=== PATIENT | female | born 1970 | race Caucasian/White ===

== ENCOUNTER 2024-07-17 13:16 | Inpatient (IN) ==
[2024-07-17 13:45] LABS: Hematocrit (blood only) 47.1 % (37.0-47.0); Hemoglobin 15.9 g/dl (12.0-16.0); Mean Corpuscular Hemoglobin 25.6 pg (25.0-34.0); Mean Corpuscular Hgb Conc 33.8 g/dL (32.0-36.0); Mean Corpuscular Volume 75.8 fL (80.0-100.0); Mean Platelet Volume 10.7 fL (9.4-12.4); Platelet Count 297 K/uL (130-400); RDW Coefficient of Variation 16.7 % (11.5-14.5); RDW Standard Deviation 43.5 fL (36.4-46.3); Red Blood Count 6.21 M/uL (4.20-5.40); White Blood Count 15.23 K/ul (4.8-10.8)
[2024-07-17 13:53] LABS: iSTAT Creatinine 1.1 mg/dl (0.6-1.3); iSTAT Hemoglobin 16.7 g/dl (12.0-16.0); iSTAT Ionized Calcium 1.19 mmol/l (1.12-1.32); iSTAT Potassium 3.4 mmol/L (3.3-5.0)
[2024-07-17 14:11] LABS: Albumin Globulin Ratio 1.5 (0.9-2); Albumin Level 4.7 gm/dl (3.4-5.0); Bilirubin,Total 1.3 mg/dl (0.2-1.0); Creatinine Clr Calc Pharmacy 59.1 ml/min; Globulin 3.2 gm/dl (2.5-4.0); Magnesium 1.7 mg/dl (1.7-2.4); Potassium 3.5 mmol/L (3.5-5.1); Total Protein 7.9 gm/dl (6.0-8.3)
[2024-07-17 14:13] LABS: Partial Thromboplastin Time 27 Seconds (21-31); Prothrombin Time 10.9 Seconds (9.0-12.0)
[2024-07-17] MEDS: SODIUM CHLORIDE 0.9% 1,000 ML IV ONE (14:21)
[2024-07-17] MEDS: ACETAMINOPHEN 1,000 MG/100 ML VIAL IV STA (14:21)
[2024-07-17] MEDS: OPTIRAY 320 125ml IV ONE (14:29)
--- NOTE | 2024-07-17 14:47 | Emergency Department Note ---
Impression & Plan TIA (transient ischemic attack), Acute ischemic left MCA stroke, Expressive aphasia ED Provider Note NAME: PAOLA BOX AGE: 54 SEX: F : 1970 ARRIVES VIA: Walk-In INFORMANT: Patient ED PROVIDER(S): Ian Webber MD CHIEF COMPLAINT: Aphasia, headache, fevers, dizziness, nausea, vomiting. PLAN: Disposition: Admit. MEDICAL DECISION MAKING: The patient is a pleasant 53-year-old woman with a past medical history of hypertension, anxiety, diabetes who presents to the emergency department via walk-in accompanied by her mother for evaluation of confusion with trouble speaking in the setting of having symptoms of headache, dizziness, fevers with nausea and vomiting that began a week ago. Patient mother reports she last spoke to the patient 2 days ago and so the patient's last known well is greater than 48 hours prior and so stroke alert was not activated on presentation. Of note, the patient did arrive to emergency department during time of high volume, acuity and prolonged emergency department waiting times. Critical pathways initiated from triage. On my evaluation the patient is no acute distress, afebrile with blood pressure 150/110s and vital signs otherwise stable. She appears clinically dry. Her speech is fluent at this time. She exhibits mild confusion to place where she knows she is in a hospital setting but is not accurate on the name of the facility. She has normal strength in all extremities. Face is symmetric. Given the mother's report of aphasia prior to arrival stroke evaluation was expedited. EKG without overt acute ischemia. CXR negative for acute cardiopulmonary process per my personal preliminary review/interpretation. WBC 15.2 K, nonspecific. H/H 15.9/47.1 consistent with patient's clinically dry appearance. Platelets within normal limits. Chemistry with bicarbonate of 19 consistent with the patient's dehydration with anion gap mildly above normal at 13. Glucose is 198. Total Bilirubin 1.3, nonspecific with LFTs otherwise normal. Respiratory BioFire was negative. CT of the head and CT of the head neck were performed. Left MCA occlusion near its origin is described with diminished vasculature in the MCA territory. There does appear to be some distal reconstitution. CT of the neck without significant carotid disease with mild atherosclerotic plaque of carotid bulbs with less than 50% stenosis described. 60% stenosis of the V4 segment of the right vertebral artery described. Given CT without contrast does not show evidence of ischemia stroke alert was activated in the event the patient may be considered for perfusion studies. Case was discussed with Dr. Box, [facility] tel[place]roke neurology. Appreciate consultation and assessment via telestroke terminal and recommendations. Patient's symptoms are completely resolved at this time and so symptoms are consistent with TIA. No indication for transfer for perfusion studies or thrombectomy at this time. Recommends that the patient be admitted to our facility for further stroke assessment including MRI of the brain. Recommends low-dose aspirin and 300 mg load of Plavix. If patient were to have recurrence of symptoms then stroke alert should be activated again in the event she would be a candidate for reperfusion and even TNK may be considered. Case was discussed with Blanka Tovar PAC with Dr. Ramirez [facility] hospitalist, who will evaluate the patient for admission. Further management per admitting team. Triage Nursing notes reviewed and agree them. Prior/external medical records reviewed Vital Signs: reviewed Differential diagnosis: Infection, dehydration, metabolic abnormality, hypo/hyperglycemia, electrolyte disturbance, anemia, hypoxia, cardiac sources, intracerebral event, toxicologic, neurologic, as well as other pathologies. ER treatment provided: See below. Diagnostics interpreted by me: ECG: Normal sinus rhythm, 72 bpm, no ectopy, no overt ST elevation or depression, QTc 468, QRS 84. Cardiac Monitoring: An order for continuous cardiac monitoring was placed and demonstrated normal sinus rhythm, 72 bpm, no ectopy. Laboratory studies: See below Imaging studies: See below Consultation(s): Dr. Box, [facility] telestroke Case was discussed with Blanka Tovar PAC with Dr. Ramirez [facility] hospitalist, who will evaluate the patient for admission. HPI: The patient is a pleasant 53-year-old woman with a past medical history of hypertension, anxiety, diabetes who presents to the emergency department via walk-in accompanied by her mother for evaluation of confusion with trouble speaking in the setting of having symptoms of headache, dizziness, fevers with nausea and vomiting that began a week ago. Patient mother reports she last spoke to the patient 2 days ago and so the patient's last known well is greater than 48 hours prior and so stroke alert was not activated on presentation. ROS: See above HPI for pertinent positives & negatives. A total of 10 systems reviewed and were otherwise negative. VITALS:See Below PHYSICAL EXAMINATION: GENERAL: Awake, alert, well-appearing, in no distress HENT: Normocephalic, atraumatic. Oropharynx with dry mucous membranes and otherwise unremarkable. EYES: Normal conjunctiva. Sclera non-icteric. EOMI. No nystamgus. PEARRL. NECK: Supple. No nuchal rigidity. FROM. No JVD. RESPIRATORY: Clear to auscultation. CARDIAC: Regular rate, normal rhythm. Extremities warm and well perfused. Pulses equal. ABDOMEN: Soft, non-distended. No tenderness to palpation. No rebound or guarding. No masses. MUSCULOSKELETAL: Chest examination reveals no tenderness. The back is symmetrical on inspection without obvious abnormality. There is no CVA tenderness to palpation. No joint edema. LOWER EXTREMITIES: Calves are equal size bilaterally and non-tender. No edema. No discoloration. NEURO: No sensory or motor deficits noted. Cranial nerves II-XII grossly intact. Speech is fluent. 5/5 strength and SILT x 4 extremities. Cerebellar function intact including [id number], alternating palms, [id number]. SKIN: No rash or jaundice noted. Ian Webber MD Past Med/Surg History Problem List Stroke-like symptoms Expressive aphasia (Acute) Acute ischemic left MCA stroke (Acute) TIA (transient ischemic attack) (Acute) Medical History Diabetes Hypertension Surgical History History of carpal tunnel surgery Hx laparoscopic cholecystectomy Hx of section Social History Smoking Status: Never smoker Second Hand Exposure: No; Do You Dip or Chew Tobacco: No; Tobacco Cessation Education Requested by Patient: No Hx Alcohol Use: No Hx Substance Use: Yes Last Used Substance: Days (ago) Substance Use Type Other:: MEDICAL MARIJUANA Preferred Language: Mauritian Communication Ability: Effective Hand Worker Required: No Beliefs That Will Affect Care: None Current Living Situation: Parent Other Information That Helps Us Care for You: No Feels Safe at Home: Yes Safety Concerns: Feels Safe At This Time Assistive Devices: Glasses Allergies Allergies Allergy/AdvReac Type Severity Reaction Status Date / Time bupropion [From Wellbutrin] Allergy Hives Verified 07/17/24 15:55 Home Meds Home Medications Medication Instructions Recorded Confirmed cyclobenzaprine 10 mg tablet 10 mg PO HS 07/17/24 07/17/24 dulaglutide 0.75 mg/0.5 mL 0.75 mg subcut WK 07/17/24 07/17/24 subcutaneous pen injector (Trulicity) lisinopril 10 mg tablet 10 mg PO HS 07/17/24 07/17/24 sertraline 100 mg tablet 200 mg PO QAM 07/17/24 07/17/24 Results & Data (ED) Vital Signs Vital Signs - 24 hr 07/17/24 13:21 07/17/24 14:06 07/17/24 14:14 Temperature 36.9 C Temperature Source Oral Pulse Rate 79 72 Pulse Rate [Apical] 69 Pulse Rhythm Pulse Rhythm [Apical] Regular Pulse Strength [Apical] Normal Respiratory Rate 20 20 Respiratory Effort / Characteristics Non-Labored Spontaneous Non-Labored Spontaneous Respiratory Depth Normal Normal Respiratory Pattern Regular Regular Blood Pressure 158/110 H Blood Pressure [Right Arm] 166/95 H Blood Pressure Mean 126 Blood Pressure Mean [Right Arm] 118 Blood Pressure Position [Right Arm] Semi-fowlers Pulse Oximetry 97 98 Oxygen Delivery Method Room Air Room Air Sepsis Recent Fever Within 48 Hours No Sepsis New/Unexplained Change in Mental Status No Sepsis Action Taken by Nursing No Action Required 07/17/24 14:14 07/17/24 14:14 07/17/24 15:27 Temperature 36.7 C Temperature Source Oral Pulse Rate 70 Pulse Rate [Apical] 69 Pulse Rhythm Regular Pulse Rhythm [Apical] Pulse Strength [Apical] Respiratory Rate 20 18 Respiratory Effort / Characteristics Non-Labored Spontaneous Respiratory Depth Normal Respiratory Pattern Blood Pressure Blood Pressure [Right Arm] 168/118 H Blood Pressure Mean Blood Pressure Mean [Right Arm] 134 Blood Pressure Position [Right Arm] Pulse Oximetry 98 98 98 Oxygen Delivery Method Room Air Room Air Room Air Sepsis Recent Fever Within 48 Hours Sepsis New/Unexplained Change in Mental Status Sepsis Action Taken by Nursing Laboratory Data Attestation: I reviewed the patient's lab results. 07/17/24 13:33 07/17/24 13:33 Lab Results 07/17/24 07/17/24 07/17/24 Range/Units 13:25 13:33 13:41 WBC 15.23 H (4.8-10.8) K/ul RBC 6.21 H (4.20-5.40) M/uL Hgb 15.9 (12.0-16.0) g/dl POC Hgb 16.7 H (12.0-16.0) g/dl Hct 47.1 H (37.0-47.0) % POC Hct 49 H (37-47) % MCV 75.8 L (80.0-100.0) fL MCH 25.6 (25.0-34.0) pg MCHC 33.8 (32.0-36.0) g/dL RDW Std Deviation 43.5 (36.4-46.3) fL RDW Coeff of Cielo 16.7 H (11.5-14.5) % Plt Count 297 (130-400) K/uL MPV 10.7 (9.4-12.4) fL PT 10.9 (9.0-12.0) Seconds INR 1.0 (0.9-1.1) APTT 27 (21-31) Seconds PTT Ratio 1.0 POC Sodium 137 (135-144) mmol/L Sodium 134 L (136-145) mmol/L POC Potassium 3.4 (3.3-5.0) mmol/L Potassium 3.5 (3.5-5.1) mmol/L POC Chloride 103 (101-112) mmol/L Chloride 102 (98-107) mmol/L Carbon Dioxide 19 L (21-32) mmol/L POC Total CO2 18 L (24-31) mmol/L Anion Gap 13 H (3-11) POC Anion Gap 21.0 (16-25) mmol/L POC BUN 16 (7-18) mg/dl BUN 16 (6-23) mg/dl Creatinine 1.07 (0.6-1.2) mg/dl POC Creatinine 1.1 (0.6-1.3) mg/dl Est Cr Clr Drug Dosing 59.1 ml/min eGFR 62.11 BUN/Creatinine Ratio 15.0 (10-20) Glucose 198 H (70-99(Fasting)) mg/dl POC Glucose 222 H (70-99) mg/dl POC Glucose (other) 195 H (70-99) mg/dl Calcium 10.0 (8.6-10.3) mg/dl POC Ioniz Calcium Kelsey 1.19 (1.12-1.32) mmol/l Magnesium 1.7 (1.7-2.4) mg/dl Total Bilirubin 1.3 H (0.2-1.0) mg/dl AST 26 (13-39) U/L ALT 14 (7-52) U/L Alkaline Phosphatase 54 (34-104) U/L Total Protein 7.9 (6.0-8.3) gm/dl Albumin 4.7 (3.4-5.0) gm/dl Globulin 3.2 (2.5-4.0) gm/dl Albumin/Globulin Ratio 1.5 (0.9-2) Adenovirus (PCR) (NotDetected) B. pertussis DNA (PCR) (NotDetected) B.parapertussis DNA PCR (NotDetected) C. pneumoniae DNA (PCR) (NotDetected) Coronavirus OC43 (PCR) (NotDetected) Coronavirus HKU1 (PCR) (NotDetected) Coronavirus 229E (PCR) (NotDetected) SARS-CoV-2 (PCR) (NotDetected) Coronavirus NL63 (PCR) (NotDetected) Human Metapneumovir PCR (NotDetected) Influenza Type A (PCR) (NotDetected) Influenza Type B (PCR) (NotDetected) M. pneumoniae (PCR) (NotDetected) Parainfluenza 1 (PCR) (NotDetected) Parainfluenza 2 (PCR) (NotDetected) Parainfluenza 3 (PCR) (NotDetected) Parainfluenza 4 (PCR) (NotDetected) RSV (PCR) (NotDetected) Entero/Rhino (PCR) (NotDetected) 07/17/24 Range/Units 14:21 WBC (4.8-10.8) K/ul RBC (4.20-5.40) M/uL Hgb (12.0-16.0) g/dl POC Hgb (12.0-16.0) g/dl Hct (37.0-47.0) % POC Hct (37-47) % MCV (80.0-100.0) fL MCH (25.0-34.0) pg MCHC (32.0-36.0) g/dL RDW Std Deviation (36.4-46.3) fL RDW Coeff of Cielo (11.5-14.5) % Plt Count (130-400) K/uL MPV (9.4-12.4) fL PT (9.0-12.0) Seconds INR (0.9-1.1) APTT (21-31) Seconds PTT Ratio POC Sodium (135-144) mmol/L Sodium (136-145) mmol/L POC Potassium (3.3-5.0) mmol/L Potassium (3.5-5.1) mmol/L POC Chloride (101-112) mmol/L Chloride (98-107) mmol/L Carbon Dioxide (21-32) mmol/L POC Total CO2 (24-31) mmol/L Anion Gap (3-11) POC Anion Gap (16-25) mmol/L POC BUN (7-18) mg/dl BUN (6-23) mg/dl Creatinine (0.6-1.2) mg/dl POC Creatinine (0.6-1.3) mg/dl Est Cr Clr Drug Dosing ml/min eGFR BUN/Creatinine Ratio (10-20) Glucose (70-99(Fasting)) mg/dl POC Glucose (70-99) mg/dl POC Glucose (other) (70-99) mg/dl Calcium (8.6-10.3) mg/dl POC Ioniz Calcium Kelsey (1.12-1.32) mmol/l Magnesium (1.7-2.4) mg/dl Total Bilirubin (0.2-1.0) mg/dl AST (13-39) U/L ALT (7-52) U/L Alkaline Phosphatase (34-104) U/L Total Protein (6.0-8.3) gm/dl Albumin (3.4-5.0) gm/dl Globulin (2.5-4.0) gm/dl Albumin/Globulin Ratio (0.9-2) Adenovirus (PCR) Not Detected (NotDetected) B. pertussis DNA (PCR) Not Detected (NotDetected) B.parapertussis DNA PCR Not Detected (NotDetected) C. pneumoniae DNA (PCR) Not Detected (NotDetected) Coronavirus OC43 (PCR) Not Detected (NotDetected) Coronavirus HKU1 (PCR) Not Detected (NotDetected) Coronavirus 229E (PCR) Not Detected (NotDetected) SARS-CoV-2 (PCR) Not Detected (NotDetected) Coronavirus NL63 (PCR) Not Detected (NotDetected) Human Metapneumovir PCR Not Detected (NotDetected) Influenza Type A (PCR) Not Detected (NotDetected) Influenza Type B (PCR) Not Detected (NotDetected) M. pneumoniae (PCR) Not Detected (NotDetected) Parainfluenza 1 (PCR) Not Detected (NotDetected) Parainfluenza 2 (PCR) Not Detected (NotDetected) Parainfluenza 3 (PCR) Not Detected (NotDetected) Parainfluenza 4 (PCR) Not Detected (NotDetected) RSV (PCR) Not Detected (NotDetected) Entero/Rhino (PCR) Not Detected (NotDetected) Administered Medications Sodium Chloride (Nss) 1,000 mls @ 80 mls/hr IV .[id number] ILYA Stop: 07/18/24 06:42 Last Admin: 07/17/24 18:27 Dose: 80 mls/hr Documented By: ALEXA Discontinued Medications Aspirin (Aspirin 81 Mg Ectab) 81 mg PO NOW STA Stop: 07/17/24 16:31 Last Admin: 07/17/24 16:35 Dose: 81 mg Documented By: ROMINA Clopidogrel Bisulfate (Clopidogrel Bisulfate 300 Mg Tab) 300 mg PO NOW STA Stop: 07/17/24 16:31 Last Admin: 07/17/24 16:35 Dose: 300 mg Documented By: ROMINA Sodium Chloride (Nss) 1,000 mls @ 999 mls/hr IV .[id number] ONE Stop: 07/17/24 15:10 Last Infusion: 07/17/24 16:18 Dose: Infused Documented By: Admin: 07/17/24 14:21 Dose: 999 mls/hr Documented By: LAURE Acetaminophen (Ofirmev) 1,000 mg in 100 mls @ 400 mls/hr IV NOW STA Stop: 07/17/24 14:24 Last Infusion: 07/17/24 15:31 Dose: Infused Documented By: Admin: 07/17/24 14:21 Dose: 400 mls/hr Documented By: LAURE Ioversol (Optiray 320 125ml) 118 ml IV ONCE ONE Stop: 07/17/24 14:29 Last Admin: 07/17/24 14:29 Dose: 118 ml Documented By: REGINA Imaging Data Radiologist's Impression: Chest X-Ray 07/17/24 13:26 XR chest 1V portable HISTORY: 54 years-old Female stroke alert acute stroke like symptoms COMPARISON: None TECHNIQUE: AP view of the chest FINDINGS: Cardiomediastinal and hilar silhouettes are within normal limits. No pneumothorax, pleural effusion or airspace consolidation. The bones of the chest appear grossly intact. IMPRESSION: No acute process. ACT 112: Negative or not required by law. The above report was generated using voice recognition software. It may contain grammatical, syntax or spelling errors. Electronically signed by: Ariel Yadav M.D. 07/17/2024 3:05 PM Head CTA 07/17/24 13:43 CT angio head wo/w CLINICAL HISTORY: spech changes TECHNIQUE: Contiguous axial CT images of the head were acquired from the base of the skull to the vertex without intravenous contrast administration. CT angiography of the head was performed following intravenous administration of iodinated contrast. Coronal and sagittal MIPS were obtained from the axial data set and were submitted for review. Automated dose lowering techniques and/or adjustment according to patient size were utilized for this examination. All measurements were calculated based on NASCET criteria. Comparison: None available at the time of this dictation. FINDINGS: CT head: There is no acute intracranial hemorrhage or evidence of acute territorial infarction. No shift of the midline structures, mass effect, or extra-axial abnormalities are shown. CTA Head: The anterior and posterior cerebral circulations are patent. There is occlusion of the left MCA near its origin with diminished vasculature and the MCA territory. IMPRESSION: Findings are concerning for a left MCA occlusion. No evidence of hemorrhagic conversion. No definite CT findings of infarct are seen at this time, however. ACT 112: Negative or not required by law. Electronically signed by: Daniel Heath M.D. 07/17/2024 3:02 PM Neck CTA 07/17/24 13:45 CT angio neck with con CLINICAL HISTORY: 54 years-old Female with speech changes. Acute stroke like symptoms COMPARISON STUDY: CTA head of same day TECHNIQUE: Following the IV administration of 1 18 mL of Optiray, CT angiogram of the neck was performed from the aortic arch to the skull base. Images are reviewed in the axial, sagittal, and coronal planes. 3-D MIPS images are created and assessed. IV contrast was administered without complication. All measurements were calculated based on NASCET criteria. A dose lowering technique was utilized adhering to the principles of ALARA. CT DOSE: 998.74 mGy.cm FINDINGS: Three-vessel morphology of the thoracic aortic arch. Patency of the innominate and imaged clavian arteries. Atheromatous plaque of the common carotid arteries without high-grade stenosis. Mild atherosclerotic plaque of the carotid bulbs without high-grade stenosis. The imaged internal carotid arteries are patent. Dominant and patent vertebral arteries. There is irregular luminal narrowing involving the C4 segment right vertebral artery, likely secondary to atheromatous plaque resulting in approximately 60% stenosis. Multinodular thyroid goiter. The lung apices appear clear without pneumothorax. Numerous dental caries with periapical cysts. Degenerative changes of the cervical spine. IMPRESSION: 1. 60% stenosis of the V4 segment right vertebral artery. 2. Mild atherosclerotic plaque of the carotid bulbs with less than 50% stenosis. 3. No high-grade stenosis, arterial occlusion, aneurysm or dissection identified. ACT 112: Negative or not required by law. The above report was generated using voice recognition software. It may contain grammatical, syntax or spelling errors. Electronically signed by: Ariel Yadav M.D. 07/17/2024 2:58 PM Discharge Plan Visit Data Chief Complaint: TIA Symptoms Stated Complaint: TROUBLE FINDING WORDS, HEAD HURTS ED Provider: Ian Webber Discharge Problem: TIA (transient ischemic attack), Acute ischemic left MCA stroke, Expressive aphasia Patient Disposition: Admitted As Inpatient Discharge Instructions Interventions: ED Discharge Assessment Last Done: 07/17/24 17:38
--- NOTE | 2024-07-17 15:00 | CT Scan Report ---
CT angio neck with con CLINICAL HISTORY: 54 years-old Female with speech changes. Acute stroke like symptoms COMPARISON STUDY: CTA head of same day TECHNIQUE: Following the IV administration of 1 18 mL of Optiray, CT angiogram of the neck was perfor med from the aortic arch to the skull base. Images are reviewed in the axial, sagittal, and coronal p lanes. 3-D MIPS images are created and assessed. IV contrast was administered without complication. A ll measurements were calculated based on NASCET criteria. A dose lowering technique was utilized adh ering to the principles of ALARA. CT DOSE: 998.74 mGy.cm FINDINGS: Three-vessel morphology of the thoracic aortic arch. Patency of the innominate and imaged c lavian arteries. Atheromatous plaque of the common carotid arteries without high-grade stenosis. Mild atherosclerotic plaque of the carotid bulbs without high-grade stenosis. The imaged internal carotid arteries are patent. Dominant and patent vertebral arteries. There is irregular luminal narrowing involving the C4 segment right vertebral artery, likely secondary to atheromatous plaque resulting in approximately 60% steno sis. Multinodular thyroid goiter. The lung apices appear clear without pneumothorax. Numerous dental efra s with periapical cysts. Degenerative changes of the cervical spine. IMPRESSION: 1. 60% stenosis of the V4 segment right vertebral artery. 2. Mild atherosclerotic plaque of the carotid bulbs with less than 50% stenosis. 3. No high-grade stenosis, arterial occlusion, aneurysm or dissection identified. ACT 112: Negative or not required by law. The above report was generated using voice recognition software. It may contain grammatical, syntax o r spelling errors. Electronically signed by: Ariel Yadav M.D. 07/17/2024 2:58 PM
--- NOTE | 2024-07-17 15:05 | CT Scan Report ---
CT angio head wo/w CLINICAL HISTORY: spech changes TECHNIQUE: Contiguous axial CT images of the head were acquired from the base of the skull to the jude nirmala without intravenous contrast administration. CT angiography of the head was performed following intravenous administration of iodinated contrast. Coronal and sagittal MIPS were obtained from the ax ial data set and were submitted for review. Automated dose lowering techniques and/or adjustment acc ording to patient size were utilized for this examination. All measurements were calculated based on NASCET criteria. Comparison: None available at the time of this dictation. FINDINGS: CT head: There is no acute intracranial hemorrhage or evidence of acute territorial infarction. No sh ift of the midline structures, mass effect, or extra-axial abnormalities are shown. CTA Head: The anterior and posterior cerebral circulations are patent. There is occlusion of the lef t MCA near its origin with diminished vasculature and the MCA territory. IMPRESSION: Findings are concerning for a left MCA occlusion. No evidence of hemorrhagic conversion. No definite CT findings of infarct are seen at this time, however. ACT 112: Negative or not required by law. Electronically signed by: Daniel Heath M.D. 07/17/2024 3:02 PM
--- NOTE | 2024-07-17 15:07 | XRay Report ---
XR chest 1V portable HISTORY: 54 years-old Female stroke alert acute stroke like symptoms COMPARISON: None TECHNIQUE: AP view of the chest FINDINGS: Cardiomediastinal and hilar silhouettes are within normal limits. No pneumothorax, pleural effusion o r airspace consolidation. The bones of the chest appear grossly intact. IMPRESSION: No acute process. ACT 112: Negative or not required by law. The above report was generated using voice recognition software. It may contain grammatical, syntax o r spelling errors. Electronically signed by: Ariel Yadav M.D. 07/17/2024 3:05 PM
[2024-07-17 15:37] LABS: Adenovirus PCR Not Detected (NotDetected); Bordetella parapertussis PCR Not Detected (NotDetected); Bordetella pertussis PCR Not Detected (NotDetected); Chlamydia pneumoniae PCR Not Detected (NotDetected); Coronavirus 229E PCR Not Detected (NotDetected); Coronavirus CoV-2 (COVID19)PCR Not Detected (NotDetected); Coronavirus HKU1 PCR Not Detected (NotDetected); Coronavirus NL63 PCR Not Detected (NotDetected); Coronavirus OC43PCR Not Detected (NotDetected); Human Metapneumovirus PCR Not Detected (NotDetected); Influenza A PCR Not Detected (NotDetected); Influenza B PCR Not Detected (NotDetected); Mycoplasma pneumoniae PCR Not Detected (NotDetected); Parainfluenza Virus 1 PCR Not Detected (NotDetected); Parainfluenza Virus 2 PCR Not Detected (NotDetected); Parainfluenza Virus 3 PCR Not Detected (NotDetected); Parainfluenza Virus 4 PCR Not Detected (NotDetected); Respiratory Syncytial VirusPCR Not Detected (NotDetected); Rhinovirus/Enterovirus PCR Not Detected (NotDetected)
[2024-07-17] MEDS: CLOPIDOGREL BISULFATE 300 MG TAB PO STA (16:35)
[2024-07-17] MEDS: ASPIRIN 81 MG ECTAB PO STA (16:35)
--- NOTE | 2024-07-17 16:43 | History & Physical Report ---
Date of Service July 17, 2024 Assessment & Plan (1) Expressive aphasia: (2) Stroke-like symptoms: (3) Hypertension: (4) Diabetes: Plan This is a 54-year-old female with significant past medical history of T2DM, HTN, HLD, depression and chronic insomnia who presents to ED secondary to difficulty speaking. Sx occurred > 24hrs ago. Expressive Aphasia Stroke like sx L MCA Occlusion admit to PCU monitor on tele pt seen by Tele stroke and given improvement of sx it was recommended pt remain here for further stroke work up obtain MRI brain, echo consult neuro Start ASA 81mg daily, Plavix 75mg daily and lipitor 40mg daily PT/OT/ST if sx recur it is recommended to call stroke alert to determine if pt would require any additional intervention. Addendum 20:48 MRI:. Abnormal truncation of the proximal left M1 flow void is seen on reference CTA exam with numerous small collateral vessels. Appearance suggest chronic occlusion of the left MCA.2. Cortical gyriform diffusion restriction within the left parietal lobe spanning a distance of 2.7 cm, suggesting acute/subacute cerebral ischemia within the left MCA territory.3. Diffusion restriction within the right cerebellar hemisphere measuring 1.5 cm in diameter consistent with acute/ subacute right cerebellar infarct. Acute R cerebellar hemisphere and L parietal Lobe Infarct reached out to Tele Stroke Dr. Box : continue ASA, Plavix, Lipitor and add Zetia Pt with 60% R vertebral stenosis - medical management is recommended T2DM - obtain a1c in a.m., hold trulicity, ISS per protocol HTN - chronic, stable, hold lisinopril for now for permissive htn Depression: chronic, stable, continue zoloft DVT ppx: SCDS For now, await MRI FULL CODE PCP: Gabriel Dispo: admit to PCU for stroke work up Pt was seen and examined in collaboration with Dr. Ramirez, please see addendum I spent a total of 76 minutes reviewing notes, outpatient records, labs, medication, coordinating, documenting and providing care for this patient excluding time spent in the performance of separately billed services. History of Present Illness Chief Complaint: Difficulty speaking. Primary Care Provider: J Carlos Rios MD This is a 54-year-old female with significant past medical history of T2DM, HTN, HLD, depression and chronic insomnia who presents to ED secondary to difficulty speaking. Pts mom is at bedside who also helps elicit history. Patient reports difficulty speaking approx 24hrs ago. 48hrs ago she also reports vomiting. She also reports a headache for the last 24hrs. She texted her mom yesterday that she felt so sick and she was vomiting and she needed to lay down. Her mom was unable to get a hold of her last night and so this morning she went over to her house to see what was going on. When she got to the house she seemed confused and had difficulty speaking. Pt also complains of feeling sick and not well. Pts mom feels she is better than she was this morning. Pt reports feeling feverish two days ago, but did not confirm that she had a true fever. She denies cough, chest pain, sob, nausea, diarrhea, constipation, dysuria, increased urg/freq with urination or hematuria. She denies any known sick contacts. In ED pt was hypertensive initially. Her lab work revealed a leukocytosis and hyperglycemia. Her respiratory biofire was negative. She underwent head cta which was concerning for possible L MCA occlusion. She became a stroke alert and it was recommended to start ASA and plavix load. They did not feel she would require intervention given sx improving. Allergies Allergy/AdvReac Type Severity Reaction Status Date / Time bupropion [From Wellbutrin] Allergy Hives Verified 07/17/24 15:55 Home Medications Medication Instructions Recorded Confirmed Type cyclobenzaprine 10 mg tablet 10 mg PO HS 07/17/24 07/17/24 History dulaglutide 0.75 mg/0.5 mL 0.75 mg subcut WK 07/17/24 07/17/24 History subcutaneous pen injector (Trulicity) lisinopril 10 mg tablet 10 mg PO HS 07/17/24 07/17/24 History sertraline 100 mg tablet 200 mg PO QAM 07/17/24 07/17/24 History Past Med/Surg History Problem List Stroke-like symptoms Expressive aphasia (Acute) Acute ischemic left MCA stroke (Acute) TIA (transient ischemic attack) (Acute) Medical History Diabetes Hypertension Surgical History History of carpal tunnel surgery Hx laparoscopic cholecystectomy Hx of section Social History Smoking Status: Never smoker Second Hand Exposure: No; Do You Dip or Chew Tobacco: No; Tobacco Cessation Education Requested by Patient: No Hx Alcohol Use: No Hx Substance Use: Yes Last Used Substance: Days (ago) Substance Use Type Other:: [employer]IJ[employer] Preferred Language: Tristanian Communication Ability: Effective Director Medicaid Required: No Beliefs That Will Affect Care: None Current Living Situation: Parent Other Information That Helps Us Care for You: No Feels Safe at Home: Yes Safety Concerns: Feels Safe At This Time Assistive Devices: Glasses Review of Systems Review of Systems: All systems reviewed & are unremarkable except as noted in HPI & below Physical Exam Physical Exam: Constitutional: WD/WN, vitals as above, NAD, sitting up in bed, pleasant, conversing easily Head: Normocephalic, Atraumatic Eyes: PERRL, conjunctivae normal, anicteric sclerae ENMT: external ear and nose normal, oropharynx normal Neck: trachea midline, no thyromegaly normal visual inspection Respiratory: normal respiratory effort, lungs clear to auscultation, no wheeze, rales, rhonchi. Normal insp/exp effort, no accessory muscle use Cardiovascular: RRR, no murmur, no edema Vessels: no JVD or carotid bruit Chest: normal inspection of chest Abdomen: normal bowel sounds, soft, nontender, no hepatosplenomegaly Musculoskeletal: no cyanosis or clubbing, extremities motor strength 5/5 Skin: no rashes, warm and dry normal turgor Neurologic: PERRL, EOMI, accommodation nl, no face palsy, +exp aphasia occasionally CN's II-XI intact bilaterally and moves all extremities Psychiatric: A+Ox3, euthymic affect Lymphatic: no cervical or axillary lymphadenopathy : deferred Results & Data Results & Data Vital Signs (Past 12 Hours) Vital Signs Temp Pulse Pulse Resp BP BP Pulse Ox 07/17/24 15:27 36.7 C 69 18 168/118 H 98 07/17/24 14:14 70 20 98 07/17/24 14:14 98 07/17/24 14:14 36.9 C 69 20 166/95 H 98 07/17/24 14:06 72 07/17/24 13:21 79 20 158/110 H 97 O2 Del Method 07/17/24 15:27 Room Air 07/17/24 14:14 Room Air 07/17/24 14:14 Room Air 07/17/24 14:14 Room Air 07/17/24 14:06 07/17/24 13:21 Room Air Laboratory Results I have independently reviewed and interpreted patient's admitting labs including CBC, CMP, PTT, PT/INR, mag, resp biofire, and troponin. Diagnostic Findings Chest X-Ray 07/17/24 13:26 XR chest 1V portable HISTORY: 54 years-old Female stroke alert acute stroke like symptoms COMPARISON: None TECHNIQUE: AP view of the chest FINDINGS: Cardiomediastinal and hilar silhouettes are within normal limits. No pneumothorax, pleural effusion or airspace consolidation. The bones of the chest appear grossly intact. IMPRESSION: No acute process. ACT 112: Negative or not required by law. The above report was generated using voice recognition software. It may contain grammatical, syntax or spelling errors. Electronically signed by: Ariel Yadav M.D. 07/17/2024 3:05 PM Head CTA 07/17/24 13:43 CT angio head wo/w CLINICAL HISTORY: spech changes TECHNIQUE: Contiguous axial CT images of the head were acquired from the base of the skull to the vertex without intravenous contrast administration. CT angiography of the head was performed following intravenous administration of iodinated contrast. Coronal and sagittal MIPS were obtained from the axial data set and were submitted for review. Automated dose lowering techniques and/or adjustment according to patient size were utilized for this examination. All measurements were calculated based on NASCET criteria. Comparison: None available at the time of this dictation. FINDINGS: CT head: There is no acute intracranial hemorrhage or evidence of acute territorial infarction. No shift of the midline structures, mass effect, or extra-axial abnormalities are shown. CTA Head: The anterior and posterior cerebral circulations are patent. There is occlusion of the left MCA near its origin with diminished vasculature and the MCA territory. IMPRESSION: Findings are concerning for a left MCA occlusion. No evidence of hemorrhagic conversion. No definite CT findings of infarct are seen at this time, however. ACT 112: Negative or not required by law. Electronically signed by: Daniel Heath M.D. 07/17/2024 3:02 PM Neck CTA 07/17/24 13:45 CT angio neck with con CLINICAL HISTORY: 54 years-old Female with speech changes. Acute stroke like symptoms COMPARISON STUDY: CTA head of same day TECHNIQUE: Following the IV administration of 1 18 mL of Optiray, CT angiogram of the neck was performed from the aortic arch to the skull base. Images are reviewed in the axial, sagittal, and coronal planes. 3-D MIPS images are created and assessed. IV contrast was administered without complication. All measurements were calculated based on NASCET criteria. A dose lowering technique was utilized adhering to the principles of ALARA. CT DOSE: 998.74 mGy.cm FINDINGS: Three-vessel morphology of the thoracic aortic arch. Patency of the innominate and imaged clavian arteries. Atheromatous plaque of the common carotid arteries without high-grade stenosis. Mild atherosclerotic plaque of the carotid bulbs without high-grade stenosis. The imaged internal carotid arteries are patent. Dominant and patent vertebral arteries. There is irregular luminal narrowing involving the C4 segment right vertebral artery, likely secondary to atheromatous plaque resulting in approximately 60% stenosis. Multinodular thyroid goiter. The lung apices appear clear without pneumothorax. Numerous dental caries with periapical cysts. Degenerative changes of the cervical spine. IMPRESSION: 1. 60% stenosis of the V4 segment right vertebral artery. 2. Mild atherosclerotic plaque of the carotid bulbs with less than 50% stenosis. 3. No high-grade stenosis, arterial occlusion, aneurysm or dissection identified. ACT 112: Negative or not required by law. The above report was generated using voice recognition software. It may contain grammatical, syntax or spelling errors. Electronically signed by: Ariel Yadav M.D. 07/17/2024 2:58 PM Medications Administered Medication List Discontinued Medications Aspirin (Aspirin 81 Mg Ectab) 81 mg PO NOW STA Stop: 07/17/24 16:31 Last Admin: 07/17/24 16:35 Dose: 81 mg Documented By: ROMINA Clopidogrel Bisulfate (Clopidogrel Bisulfate 300 Mg Tab) 300 mg PO NOW STA Stop: 07/17/24 16:31 Last Admin: 07/17/24 16:35 Dose: 300 mg Documented By: ROMINA Sodium Chloride (Nss) 1,000 mls @ 999 mls/hr IV .Q1H1M ONE Stop: 07/17/24 15:10 Last Infusion: 07/17/24 16:18 Dose: Infused Documented By: Admin: 07/17/24 14:21 Dose: 999 mls/hr Documented By: LAURE Acetaminophen (Ofirmev) 1,000 mg in 100 mls @ 400 mls/hr IV NOW STA Stop: 07/17/24 14:24 Last Infusion: 07/17/24 15:31 Dose: Infused Documented By: Admin: 07/17/24 14:21 Dose: 400 mls/hr Documented By: LAURE Ioversol (Optiray 320 125ml) 118 ml IV ONCE ONE Stop: 07/17/24 14:29 Last Admin: 07/17/24 14:29 Dose: 118 ml Documented By: REGINA ECG Additional Comments: I have independently reviewed and interpreted patient's admitting EKG which revealed: 72, NSR, QTC 468ms COVID-19 Results Results COV- Adm Lab Results: RBC 6.21 M/uL (4.20-5.40) H 07/17/24 WBC 15.23 K/ul (4.8-10.8) H 07/17/24 Hgb 15.9 g/dl (12.0-16.0) 07/17/24 Hct 47.1 % (37.0-47.0) H 07/17/24 Plt Count 297 K/uL (130-400) 07/17/24 Na 134 mmol/L (136-145) L 07/17/24 K 3.5 mmol/L (3.5-5.1) 07/17/24 Cl 102 mmol/L (98-107) 07/17/24 CO2 19 mmol/L (21-32) L 07/17/24 Anion Gap 13 (3-11) H 07/17/24 BUN 16 mg/dl (6-23) 07/17/24 Creatinine 1.07 mg/dl (0.6-1.2) 07/17/24 BUN/Creatinine Ratio 15.0 (10-20) 07/17/24 Glucose Level 198 mg/dl (70-99(Fasting)) H 07/17/24 Ca 10.0 mg/dl (8.6-10.3) 07/17/24 Total Bilirubin 1.3 mg/dl (0.2-1.0) H 07/17/24 AST/SGOT 26 U/L (13-39) 07/17/24 ALT/SGPT 14 U/L (7-52) 07/17/24 Alkaline Phosphatase 54 U/L (34-104) 07/17/24 Total Protein 7.9 gm/dl (6.0-8.3) 07/17/24 Albumin 4.7 gm/dl (3.4-5.0) 07/17/24 Globulin 3.2 gm/dl (2.5-4.0) 07/17/24 Albumin/Globulin Ratio 1.5 (0.9-2) 07/17/24 PTT 27 Seconds (21-31) 07/17/24 INR 1.0 (0.9-1.1) 07/17/24 Adenovirus (PCR) Not Detected (NotDetected) 07/17/24 B. parapertussis DNA (PCR) Not Detected (NotDetected) 07/02 12/24 B. pertussis DNA (PCR) Not Detected (NotDetected) 07/17/24 C. pneumoniae DNA (PCR) Not Detected (NotDetected) 5 Coronavirus Type OC43 (PCR) Not Detected (NotDetected) Coronavirus Type HKU1 (PCR) Not Detected (NotDetected) Coronavirus Type 229E (PCR) Not Detected (NotDetected) COVID-19 PCR Not Detected (NotDetected) 07/17/24 Coronavirus Type NL63 (PCR) Not Detected (NotDetected) Human Metapneumovirus (PCR) Not Detected (NotDetected) Influenza Virus Type A (PCR) Not Detected (NotDetected) Influenza Virus Type B (PCR) Not Detected (NotDetected) M. pneumoniae (PCR) Not Detected (NotDetected) 07/17/24 Parainfluenza Type 1 (PCR) Not Detected (NotDetected) 07/02 12/24 Parainfluenza Type 2 (PCR) Not Detected (NotDetected) 07/02 12/24 Parainfluenza Type 3 (PCR) Not Detected (NotDetected) 07/02 12/24 Parainfluenza Type 4 (PCR) Not Detected (NotDetected) 07/02 12/24 RSV (PCR) Not Detected (NotDetected) 07/17/24 Enterovirus/Rhinovirus (PCR) Not Detected (NotDetected) Chest X-Ray 07/17/24 Code Status & VTE Plan Code Status FULL CODE VTE Prophylaxis Plan VTE Prophylaxis will be ordered: Yes Supervising Physician Co-Signing Physician Notes Pt seen and examined by me, care coordinated with Karolina Patino PA-C, pls refer to her note above for further detail. 54 yo F with hx of T2DM, HTN, HLD, depression and chronic insomnia who presents to ED secondary to difficulty speaking. Pt's mom is at bedside who also helps elicit history. Patient reports difficulty speaking approx 24hrs ago, also reports vomiting, and headache. In ED,labs w/leukocytosis and hyperglycemia, respiratory biofire negative. Head CTA w/ possible L MCA occlusion. She became a stroke alert and it was recommended to start ASA and plavix load by [facility]. They did not feel she would require intervention given sx improving. Pt is currently laying in bed in NAD. She is awake and alert, able to answer questions appropriately however sometimes seem to have difficulty finding words. no facial asymmetry. lungs CTAB, heart sounds regular. Abdomen soft, nontender. No LE edema. Pt is moving all extremities, no weakness noted on exam. Plan for MRI, and further stroke work up. MD Ashley Update: MRI results available c/w acute/subacute CVA - discussed results w/ Dr. Box [facility] [place] [facility] - recommend to continue medical management as above.
[2024-07-17] MEDS ORDERED: GLUCOSE 40% GEL 15 GM TUBE PO PRN (18:13)
[2024-07-17] MEDS ORDERED: PHARMACIST DISCHARGE MED REC CONSULT PRN (18:13)
[2024-07-17] MEDS ORDERED: GLUCOSE 10 TAB/TUBE PO PRN (18:13)
[2024-07-17] MEDS ORDERED: CARBOHYDRATES FOR HYPOGLYCEMIA PO PRN (18:13)
[2024-07-17] MEDS ORDERED: DEXTROSE 50% 50 ML SYRINGE IV PRN (18:13)
[2024-07-17] MEDS ORDERED: ACETAMINOPHEN 325 MG TAB PO PRN (18:13)
[2024-07-17] MEDS ORDERED: GLUCAGON FOR INJ 1 MG VIAL SQ PRN (18:13)
[2024-07-17] MEDS: SODIUM CHLORIDE 0.9% 1,000 ML IV SCH (18:27)
--- OUTSIDE RECORDS SUMMARY | 2024-07-17 19:35 | External Medical Summary | Summary of Care ---
Author Name Unknown Organization [facility] Address [address] [place] [address] Phone [phone] Care Team Providers Care Slot Machine Key Person Name Role Phone Risa Jackson MD Primary Care Provider [phone] Reason for Visit * Reason Onset Date Comments Medication Refill 04/03/2024 Encounter Details Date Type Department Care Team (Late st Contact Info) Description 04/03/2024 Refill Family Practice [facility] [address] [place] [phone] Risa Jackson MD [address] [place] [address] Allergies Active Allergy Reactions Criticality Noted Date Comments Bupropion Hives 07/04/2017 documented as of this encounter (statuses as of 04/03/2024) Medications Medication Sig Dispensed Refills Start Date End Date Status D-Care Glucometer w/Device Kit Use as directed. 1 Kit 1 12/27/2020 Active OneTouch Verio w/Device Kit Use up to 4 times a day E11.9 1 Kit 12/30/2020 Active OneTouch Verio In Vitro Strip (Glucose Blood) Use up to 4 times a day E11.9 100 Strip 11 12/30/2020 Active traZODone HCl 100 MG Oral Tablet (Desyrel)Indicatio ns:Moderate episode of recurrent major depressive disorder (HCC) Take by mouth 1 Tablet before bedtime. 90 Tablet 3 03/08/2022 Active Additional Information Patient not taking.Reported on 01/09/2024 Acetaminophen-Code ine #3 300-30 MG Oral Tablet (Tylenol #3) Take 1 Tablet by mouth every 4 hours as needed for Pain, Moderate or Pain, Severe. May take 2 tablets for severe pain. 10 Tablet 1 08/02/2022 Active Cyclobenzaprine HCl 10 MG Oral Tablet (Flexeril)Indicati ons:Spasm of thoracic back muscle Take 1 Tablet by mouth at bedtime. 10 Tablet 12/28/2022 Active Additional Information Patient not taking.Reported on 01/09/2024 hydrOXYzine HCl 25 MG Oral Tablet Take 1 Tablet by mouth at bedtime. 30 Tablet 5 09/10/2023 Active Additional Information Patient not taking.Reported on 01/09/2024 Triamcinolone Acetonide 0.1 % External Cream (Aristocort) Apply to rash on trunk twice a day for 2 weeks then as needed 454 g 1 09/10/2023 Active Rosuvastatin Calcium 20 MG Oral Tablet (Crestor) Take 1 Tablet by mouth daily. 90 Tablet 1 09/13/2023 Active Additional Information Patient not taking.Reported on 12/05/2023 Sertraline HCl 100 MG Oral Tablet (Zoloft)Indication s:Moderate episode of recurrent major depressive disorder (HCC) TAKE TWO TABLETS BY MOUTH IN THE MORNING 180 Tablet 03/04/2024 Active Lisinopril 10 MG Oral Tablet (Prinivil)Indicati ons:Hypertension goal BP (blood pressure) < 140/90 TAKE 1 TABLET BY MOUTH before bedtime 90 Tablet 03/04/2024 Active Trulicity 0.75 MG/0.5ML Subcutaneous Solution Pen-injector (Dulaglutide) inject 1 pen under the skin once a week 6 mL 04/03/2024 Active Trulicity 0.75 MG/0.5ML Subcutaneous Solution Pen-injector (Dulaglutide) inject 1 pen under the skin once a week 6 mL 03/28/2024 4 Discontinue d(Refill) documented as of this encounter (statuses as of 04/03/2024) Active Problems Problem Noted Date Diagnosed Date Overweight (BMI 25.0-29.9) 01/20/2024 Chronic insomnia 11/03/2023 Type 2 diabetes mellitus wit h hemoglobin A1c goal of less than 7.0% 12/08/2019 Dyslipidemia 12/08/2019 Moderate episode of recurrent major depressive d isorder 11/06/2018 documented as of this encounter (statuses as of 04/03/2024) Resolved Problems Problem Noted Date Diagnosed Date Resolved Date Left wrist pain 05/16/2023 10/04/2023 Bilateral carpal tunnel syndrome 04/13/2021 11/04/2023 Menorrhagia 12/16/2018 08/31/2019 documented as of this encounter (statuses as of 04/03/2024) Immunizations Name Administration Dates Next Due TDAP (age 10 and older)(Boostrix) 09/28/2021 documented as of this encounter Social History Tobacco Use Types Packs/Day Years Used Date Smoking Tobacco: Never Smokeless Tobacco: Never Alcohol Use Standard Drinks/Week Comments Yes 0 (1 standard drink = 0.6 oz pur e alcohol) ocas PHQ-2 Answer Date Recorded PHQ-2 Score 21 05/05/2018 Hunger Vital Sign Answer Date Recorded Within the past 12 months, y ou worried that your food would run out before you got the money to buy more. Never true 10/02/19 24 Within the past 12 months, t he food you bought just didn't last and you didn't have money to get more. Never true 10/02/2023 Childcare Answer Date Recorded Do you feel overwhelmed with taking care of a child, family member or friend? No 10/02/2023 Does your family need help f inding childcare? (Household - for ages 0-17 years) Not on file 10/02/2023 Clothing Answer Date Recorded Have you been unable to get clothing when it was really needed? No 10/02/2023 Is your family able to get c lothes or diapers when needed? (Household - for ages 0-17 years) Not on file 10/02/2023 Personal Safety Answer Date Recorded Do you feel unsafe or have concerns for your saf ety? No 10/02/2023 Do you have concerns for you r family's safety? (Household - for ages 0-17 years) Not on file 10/02/2023 Utilities Answer Date Recorded Do you have trouble paying y our heating, water, or electric bill? No 10/02/2023 Is your family able to pay t he heat, water, or electric bill? (Household - for ages 0-17 years) Not on file 10/02/2023 Does your family have access to good internet? (Household - for ages 0-17 years) Not on file 10/02/2023 Employment Status Answer Date Recorded Are you unemployed or without regular income? No 10/02/2023 Does the household have a re gular source of income? (Household - for ages 0-17 years) Not on file 10/02/2023 Social Connections Answer Date Recorded How often do you feel lonely or isolated from th ose around you? Never 10/02/2023 Financial Resource Strain Answer Date R ecorded Do you have any trouble payi ng for your medications, or do you think you might in the future? No 10/02/2023 Does your family have troubl e paying for medicine? (Household - for ages 0-17 years) Not on file 10/02/2023 Transportation Needs Answer Date Record ed READ ONLY Do you have troubl e getting a ride to medical visits or work? Never True 10/02/2023 Does your family have a hard time getting a ride to doctors visits? (Household - for ages 0-17 years) Not on file 10/02/2023 Has lack of transportation k ept you from medical appointments, meetings, work, or from getting things needed for daily living? Check all that apply. (Adult - for ages 18 years and over) Not on file 10/02/2023 Do you (or your family) have trouble finding or paying for a ride (transportation)? (Household - for ages 0-17 years) Not on file 10/02/2023 Housing Stability Answer Date Recorded Do you currently live in a s helter or have no steady place to sleep at night? No 10/02/2023 READ ONLY Do you think you a re at risk of becoming homeless? No 10/02/2023 Does your family worry about paying for your home or becoming homeless? (Household - for ages 0-17 years) Not on file 0 10/02/2023 Are you homeless or worried that you might be in the future? (Adult - for ages 18 years and over) Not on file Are you (or your family) saul eless or worried that you might be in the future? (Household - for ages 0-17 years) Not on file Food Insecurity Answer Date Recorded Do you need food for this week? No 10/02/2023 Are you able to get enough f ood for your family? (Household - for ages 0-17 years) Not on file 10/02/2023 Does your family need food t his week? (Household - for ages 0-17 years) Not on file 10/02/2023 Do you always have enough fo od for your family? (Household - for ages 0-17 years) Not on file 10/02/2023 Sex and Gender Information Value Date Recorded Sex Assigned at Female 10/02/2023 12:03 PM EDT Gender Identity Female 10/02/2023 12:03 PM EDT Sexual Orientation Straight 10/02/2023 12 :03 PM EDT Job Start Date Occupation Industry Not on file Not on file Not on file documented as of this encounter Miscellaneous Notes * Telephone Encounter - Fede Moore [facility] - 04/03/2024 8:43 AM EDTSigned Prescriptions: Disp Refills Trulicity 0.75 MG/0.5ML Subcutaneous Solut*6 mL 0 Sig: inject 1 pen under the skin once a weekAuthorizing Provider: RISA JACKSON User: FEDE LOU * Telephone Encounter - Fede Moore [facility] - 04/03/2024 8:41 AM EDT Rx resent to Terri. documented in this encounter Plan of Treatment Scheduled Procedures Name Priority Associated Diagnoses Date/Ti me COLONOSCOPY FLEXIBLE PROXIMA L DIAGNOSTIC Recall Special screening for malignant neoplasms, colon Health Maintenance Due Date Last Done Comments Pneumococcal Vaccine: Pediatrics (0 to 5 Years) and At-Risk Patients (6 to 64 Years) (1 of 2 - PCV) 1977 Hepatitis C Screening 1989 Hepatitis B Vaccine (1 of 3 - 19+ 3-dose series) 1990 HPV/Co-Test 2001 Mammogram 2011 Cologuard 02/18/2016 Colonoscopy 02/18/2016 Colorectal Cancer Screening 02/18/2016 Fecal Occult Blood Test 02/18/2016 Sigmoidoscopy 02/18/2016 Depression Monitoring 07/04/2018 07/04/2017 Zoster Vaccines (1 of 2) 2021 Cervical Cancer Screening 09/10/2021 Pap Smear 09/10/2021 09/10/2018, 09/10/2018 Diabetic Eye Exam 09/28/2022 09/28/2021, 08/23/2020 Diabetic Foot Exam 09/28/2022 09/28/2021, 08/23/2020 COVID-19 Vaccine ( season) 2024 Influenza Vaccine (FLU shot) (#1) 2024 04/02/2019 HbA1c 03/14/2024 09/12/2023, 04/01, 09/29/2021, Additional history exists Albumin/Creatinine Ratio 09/11/2024 09/12/2023, 06/0 08/2020 GFR 09/11/2024 09/12/2023, 04/12/2022 Lipid Panel 09/11/2028 09/12/2023, 06/0 10/2019, 08/24/1998 DTap/Tdap Vaccines (2 - Td or Tdap) 09/29/2031 09/28/2021 HPV (Gardasil) Vaccine Aged Out No lo nger eligible based on patient's age to complete this topic MENINGOCOCCAL (MENACTRA/MENVEO) Aged Out No longer eligible based on patient's age to complete this topic documented as of this encounter Medical Devices Not on filedocumented as of this encounter Care Teams Slot Machine Key Person Relationship Specialty Start Date End Date Risa Jackson MD [address] [place] [id number] PCP - General Family Medicine 07/04/17 documented as of this encounter
--- OUTSIDE RECORDS SUMMARY | 2024-07-17 19:35 | External Medical Summary | Summary of Care ---
Author Name Unknown Organization [facility] Address [address] [place] [address] Phone [phone] Care Team Providers Care Take Down Sorter Name Role Phone Risa Jackson MD Primary Care Provider [phone] Reason for Visit * Reason Comments eRx-Medication Refill Encounter Details Date Type Department Care Team (Late st Contact Info) Description 02/29/2024 Refill Family Practice [facility] [address] [place] [address] Risa Jackson MD [address] [place] [phone] Moderate episode of recurrent major depressive disorder (HCC); Hypertension goal BP (blood pressure) < 140/90 Allergies Active Allergy Reactions Criticality Noted Date Comments Bupropion Hives 07/04/2017 documented as of this encounter (statuses as of 03/04/2024) Medications Medication Sig Dispensed Refills Start Date [...] Active traZODone HCl 100 MG Oral Tablet (Desyrel)Indicati ons:Moderate episode of recurrent major depressive disorder (HCC) Take by mouth 1 Tablet before bedtime. 90 Tablet 3 03/08/2022 Active Additional Information Patient not taking.Reported on 01/09/2024 Acetaminophen-Cod eine #3 300-30 MG Oral Tablet (Tylenol #3) Take 1 Tablet by mouth every 4 hours as needed for Pain, Moderate or Pain, Severe. May take 2 tablets for severe pain. 10 Tablet 1 08/02/2022 Active Cyclobenzaprine HCl 10 MG Oral Tablet (Flexeril)Indicat ions:Spasm of thoracic back muscle Take 1 Tablet [...] Additional Information Patient not taking.Reported on 12/05/2023 Trulicity 0.75 MG/0.5ML Subcutaneous Solution Pen-injector (Dulaglutide) inject 1 pen under the skin once a week 6 mL 1 09/24/2023 Active Sertraline HCl 100 MG Oral Tablet (Zoloft)Indicatio ns:Moderate episode of recurrent major depressive disorder (HCC) TAKE TWO TABLETS BY MOUTH IN THE MORNING 180 Tablet 03/04/2024 Active Lisinopril 10 MG Oral Tablet (Prinivil)Indicat ions:Hypertension goal BP (blood pressure) < 140/90 TAKE 1 TABLET BY MOUTH before bedtime 90 Tablet 03/04/2024 Active Sertraline HCl 100 MG Oral Tablet (Zoloft)Indicatio ns:Moderate episode of recurrent major depressive disorder (HCC) Take 2 Tablets by mouth in the morning. 180 Tablet 3 02/27/2023 03/04/20 24 Discontinued Lisinopril 10 MG Oral Tablet (Prinivil)Indicat ions:Hypertension goal BP (blood pressure) < 140/90 TAKE 1 TABLET BY MOUTH before bedtime 90 Tablet 11/29/2023 03/04/20 24 Discontinued documented as of this encounter (statuses as of 03/04/2024) Active Problems Problem Noted Date Diagnosed Date Overweight (BMI 25.0-29.9) 01/20/2024 Chronic insomnia 11/03/2023 Type 2 diabetes mellitus wit h hemoglobin A1c goal of less than 7.0% 12/08/2019 Dyslipidemia 12/08/2019 Moderate episode of recurrent major depressive d isorder 11/06/2018 documented as of this encounter (statuses as of 03/04/2024) Resolved Problems Problem Noted Date Diagnosed Date Resolved Date Left wrist pain 05/16/2023 10/04/2023 Bilateral carpal tunnel syndrome 04/13/2021 11/04/2023 Menorrhagia 12/16/2018 08/31/2019 documented as of this encounter (statuses as of 03/04/2024) Immunizations Name Administration Dates Next Due TDAP [...] No 10/02/2023 Does the household have a ascension macombr source of income? (Household - for ages [...] encounter Miscellaneous Notes * Telephone Encounter - Risa Jackson MD - 03/04/2024 12:51 PM EDTSigned Prescriptions: Disp Refills Sertraline HCl 100 MG Oral Tablet (Zoloft) 180 Ta*0 Sig: TAKE TWO TABLETS BY MOUTH IN THE MORNING Authorizing Provider: RISA JACKSON Lisinopril 10 MG Oral Tablet (Prinivil) 90 Tab*0 Sig: TAKE 1 TABLET BY MOUTH before bedtime Authorizing Provider: RISA JACKSON ------- * Telephone Encounter - Interface, [facility] - 03/04/2024 12:11 PM EDT Pending Prescriptions: Disp Refills Sertraline HCl 100 MG Oral Tablet [Pharmac*180 Ta*0 Sig: TAKE TWO TABLETS BY MOUTH IN THE MORNING Lisinopril 10 MG Oral Tablet [Pharmacy Med*90 Tab*0 Sig: TAKE 1 TABLET BY MOUTH before bedtime * Telephone Encounter - Erasmo Shepherd vice president lending - 03/04/2024 9:01 AM EDTPending Prescriptions: Disp Refills Sertraline HCl 100 MG Oral Tablet [Pharmac*180 Ta*0 Sig: TAKE TWO TABLETS BY MOUTH IN THE MORNING Lisinopril 10 MG Oral Tablet [Pharmacy Med*90 Tab*0 Sig: TAKE 1 TABLET BY MOUTH before bedtime * Telephone Encounter - Erasmo Shepherd, vice president lending - 03/04/2024 9:00 AM EDT Received message from [facility] regarding patient needing an appointment. Call Placed, Left message on voicemail to call back and schedule appointment. Thank you, Earsmo Shepherd Dictating Machine Mechanic Guy [facility] 03/04/2024, 9:00 AM * Telephone Encounter - Risa Menendez [facility] - 03/03/2024 7:55 AM EDT Pending Prescriptions: Disp Refills Sertraline HCl 100 MG Oral Tablet [Pharmac*180 Ta*0 Sig: TAKE TWO TABLETS BY MOUTH IN THE MORNING Lisinopril 10 MG Oral Tablet [Pharmacy Med*90 Tab*0 Sig: TAKE 1 TABLET BY MOUTH before bedtime * Telephone Encounter - Risa Menendez [facility] - 03/03/2024 7:54 AM EDT Please contact patient so that an appointment can be scheduled with her PRIMARY CARE provider before this refill can be authorized. After contacting patient, please forward request to Risa Jackson MD. Last Visit: 04/12/2022 (in office), 12/03/2019 (telemedicine) Next Visit: Visit date not found Thanks, Risa Menendez, PharmD Clinical Pharmacist [facility] [phone] 03/03/2024, 7:54 AM * Telephone Encounter - Interface, [facility] - 03/02/2024 12:11 PM EDT Pending Prescriptions: Disp Refills Sertraline HCl 100 MG Oral Tablet [Pharmac*180 Ta*0 Sig: TAKE TWO TABLETS BY MOUTH IN THE MORNING Lisinopril 10 MG Oral Tablet [Pharmacy Med*90 Tab*0 Sig: TAKE 1 TABLET BY MOUTH before bedtime documented in this encounter Plan of Treatment [...] Not on filedocumented as of this encounter Visit Diagnoses Diagnosis Moderate episode of recurrent major depressive disorder (HCC) Hypertension goal BP (blood pressure) < 140/90 Unspecified essential hypertension documented in this encounter Care Teams Take Down Sorter Relationship Specialty Start Date End Date Risa Jackson MD [address] [place] [phone] PCP - General Family Medicine 07/04/17 documented as of this encounter
--- OUTSIDE RECORDS SUMMARY | 2024-07-17 19:35 | External Medical Summary | Summary of Care ---
Author Name Unknown Organization [facility] Address [address] [facility] [place] [address] Phone [phone] Care Team Providers Care Die Trimmer Name Role Phone Risa Jackson MD Primary Care Provider [phone] Reason for Visit * Reason Comments eRx-Medication Refill Encounter Details Date Type Department Care Team (Late st Contact Info) Description 03/26/2024 Refill Family Practice [facility] [address] [place] [address] Risa Jackson MD [address] [facility] [place] [phone] Allergies Active Allergy Reactions Criticality Noted Date Comments Bupropion Hives 07/04/2017 documented as of this encounter (statuses as of 03/28/2024) Medications Medication Sig Dispensed Refills Start Date [...] 12/05/2023 Sertraline HCl 100 MG Oral Tablet (Zoloft)Indicatio [...] skin once a week 6 mL 03/28/2024 Active Trulicity 0.75 MG/0.5ML Subcutaneous Solution Pen-injector (Dulaglutide) inject 1 pen under the skin once a week 6 mL 1 09/24/2023 03/28/20 24 Discontinued documented as of this encounter (statuses as of 03/28/2024) Active Problems Problem Noted Date Diagnosed Date Overweight (BMI 25.0-29.9) 01/20/2024 Chronic insomnia 11/03/2023 Type 2 diabetes mellitus wit h hemoglobin A1c goal of less than 7.0% 12/08/2019 Dyslipidemia 12/08/2019 Moderate episode of recurrent major depressive d isorder 11/06/2018 documented as of this encounter (statuses as of 03/28/2024) Resolved Problems Problem Noted Date Diagnosed Date Resolved Date Left wrist pain 05/16/2023 10/04/2023 Bilateral carpal tunnel syndrome 04/13/2021 11/04/2023 Menorrhagia 12/16/2018 08/31/2019 documented as of this encounter (statuses as of 03/28/2024) Immunizations Name Administration Dates Next Due TDAP [...] Telephone Encounter - Risa Jackson MD - 03/28/2024 8:48 AM EDTSigned Prescriptions: Disp Refills Trulicity 0.75 MG/0.5ML Subcutaneous Solut*6 mL 0 Sig: inject 1 pen under the skin once a week Authorizing Provider: RISA JACKSON * Telephone Encounter - Erasmo Shepherd, project management director - 03/28/2024 8:41 AM EDTPending Prescriptions: Disp Refills Trulicity 0.75 MG/0.5ML Subcutaneous Solut*6 mL 0 Sig: inject 1 pen under the skin once a week * Telephone Encounter - Erasmo Shepherd project management director - 03/28/2024 8:40 AM EDT Received message from [facility] regarding patient needing an appointment. Call Placed, Left message on voicemail to call back and schedule appointment. Thank you, Erasmo Shepherd Queen Producer Guy [facility] 03/28/2024, 8:40 AM * Telephone Encounter - [employer], [facility] - 03/28/2024 7:56 AM EDT Pending Prescriptions: Disp Refills Trulicity 0.75 MG/0.5ML Subcutaneous Solut*6 mL 0 Sig: inject 1 pen under the skin once a week * Telephone Encounter - Zoe Griffith [facility] - 03/27/2024 11:49 AM EDT Pending Prescriptions: Disp Refills Trulicity 0.75 MG/0.5ML Subcutaneous Solut*6 mL 0 Sig: inject 1 pen under the skin once a week * Telephone Encounter - Zoe Griffith [facility] - 03/27/2024 11:49 AM EDT Please contact patient so that an appointment can be scheduled with her PRIMARY CARE provider before this refill can be authorized. After contacting patient, please forward request to Risa Jackson MD. Last Visit: 04/12/2022 (in office), 12/03/2019 (telemedicine) Next Visit: Visit date not found Thank you, Zoe Griffith, PharmD Clinical Pharmacist [facility] 03/27/24 11:49 AM [phone] documented in this encounter Plan of Treatment [...] filedocumented as of this encounter Care Teams Die Trimmer Relationship Specialty Start Date End Date Risa Jackson MD [address] [place] [phone] PCP - General Family Medicine 07/04/17 documented as of this encounter
--- OUTSIDE RECORDS SUMMARY | 2024-07-17 19:35 | External Medical Summary | Summary of Care ---
Author Name Unknown Organization [facility] Address [address] [facility] [place] [address] Phone [phone] Care Team Providers Care Plate Maker Name Role Phone J Carlos Rios MD Primary Care Provider [phone] Reason for Visit * Reason Comments eRx-Medication Refill Encounter Details Date Type Department Care Team (Late st Contact Info) Description 06/20/2024 Refill Family Practice [facility] [address] [place] [id number] J Carlos Rios MD [address] [facility] [place] [id number] Allergies Active Allergy Reactions Criticality Noted Date Comments Bupropion Hives 07/04/2017 documented as of this encounter (statuses as of 06/21/2024) Medications D-Care Glucometer w/Device Kit Use as directed. 1 Kit 1 1 Active OneTouch Verio w/Device Kit Use up to 4 times a day E11.9 1 Kit 1 Active OneTouch Verio In Vitro Strip (Glucose Blood) Use up to 4 times a day E11.9 100 Strip 11 1 Active traZODone HCl 100 MG Oral Tablet (Desyrel)Indicat ions:Moderate episode of recurrent major depressive disorder (HCC) Take by mouth 1 Tablet before bedtime. 90 Tablet 3 2 Active Additional Information Patient not taking.Reported on 01/09/2024 Acetaminophen-Co deine #3 300-30 MG Oral Tablet (Tylenol #3) Take 1 Tablet by mouth every 4 hours as needed for Pain, Moderate or Pain, Severe. May take 2 tablets for severe pain. 10 Tablet 1 3 Active Cyclobenzaprine HCl 10 MG Oral Tablet (Flexeril)Indica tions:Spasm of thoracic back muscle Take 1 Tablet by mouth at bedtime. 10 Tablet 3 Active Additional Information Patient not taking.Reported on 01/09/2024 hydrOXYzine HCl 25 MG Oral Tablet Take 1 Tablet by mouth at bedtime. 30 Tablet 5 4 Active Additional Information Patient not taking.Reported on 01/09/2024 Triamcinolone Acetonide 0.1 % External Cream (Aristocort) Apply to rash on trunk twice a day for 2 weeks then as needed 454 g 1 4 Active Rosuvastatin Calcium 20 MG Oral Tablet (Crestor) Take 1 Tablet by mouth daily. 90 Tablet 1 4 Active Additional Information Patient not taking.Reported on 12/05/2023 Sertraline HCl 100 MG Oral Tablet (Zoloft)Indicati ons:Moderate episode of recurrent major depressive disorder (HCC) TAKE TWO TABLETS BY MOUTH IN THE MORNING 180 Tablet 4 Active Lisinopril 10 MG Oral Tablet (Prinivil)Indica tions:Hypertensi on goal BP (blood pressure) < 140/90 TAKE 1 TABLET BY MOUTH before bedtime 90 Tablet 4 Active Trulicity 0.75 MG/0.5ML Subcutaneous Solution Pen-injector (Dulaglutide) inject 1 pen under the skin once a week 6 mL 4 Active Trulicity 0.75 MG/0.5ML Subcutaneous Solution Auto-injector (Dulaglutide) Inject 0.75 mg under the skin once a week. 2 mL 4 Active documented as of this encounter (statuses as of 06/21/2024) Active Problems Problem Noted Date Diagnosed Date Overweight (BMI 25.0-29.9) 01/20/2024 Chronic insomnia 11/03/2023 Type 2 diabetes mellitus wit h hemoglobin A1c goal of less than 7.0% 12/08/2019 Dyslipidemia 12/08/2019 Moderate episode of recurrent major depressive d isorder 11/06/2018 documented as of this encounter (statuses as of 06/21/2024) Resolved Problems Problem Noted Date Diagnosed Date Resolved Date Left wrist pain 05/16/2023 10/04/2023 Bilateral carpal tunnel syndrome 04/13/2021 11/04/2023 Menorrhagia 12/16/2018 08/31/2019 documented as of this encounter (statuses as of 06/21/2024) Immunizations Name Administration Dates Next Due TDAP [...] ages 0-17 years) Not on file 10/02/2023 Comments No Sex and Gender Information Value Date Recorded Sex Assigned at Female 10/02/2023 12:03 PM EDT Legal Sex Female 5:57 AM EST Gender Identity Female 10/02/2023 12:03 PM EDT Sexual Orientation Straight 10/02/2023 12 :03 PM EDT documented as of this encounter Miscellaneous Notes * Telephone Encounter - Steven Colunga RPh - 06/21/2024 2:06 PM ESTRefused Prescriptions: Disp Refills Trulicity 0.75 MG/0.5ML Subcutaneous Solut* Sig: INJECT 1 PEN SUBCUTANEOUSLY ONCE WEEKLYRefused By: STEVEN COLUNGA for Refusal: Duplicate Request-------- documented in this encounter Plan of Treatment Scheduled Procedures Name Priority Associated Diagnoses Date/Ti me COLONOSCOPY FLEXIBLE PROXIMA L DIAGNOSTIC Recall Special screening for malignant neoplasms, colon Health Maintenance Due Date Last Done Comments Hepatitis C Screening 1989 Hepatitis B Vaccine (1 of 3 - 19+ 3-dose series) 1990 Pneumococcal Vaccine: Pediatrics (0 to 5 Years) and At-Risk Patients (6 to 64 Years) (1 of 2 - PCV) 1990 HPV/Co-Test 2001 Mammogram 2011 Cologuard 02/18/2016 [...] filedocumented as of this encounter Care Teams Plate Maker Relationship Specialty Start Date End Date J Carlos Rios MD [address] [place] [id number] PCP - General Family Medicine 07/04/17 documented as of this encounter
--- OUTSIDE RECORDS SUMMARY | 2024-07-17 19:35 | External Medical Summary | Summary of Care ---
Author Name Unknown Organization [facility] Address [address] [facility] [place] [address] Phone [phone] Care Team Providers Care Non Destructive Testing Scientist Name Role Phone Unavailable Primary Care Provider Unavailabl e Reason for Visit * Reason Onset Date Comments Medication Refill 07/11/2024 Encounter Details Date Type Department Care Team (Late st Contact Info) Description 07/11/2024 Refill Family Practice [facility] [address] [place] [phone] Risa Jackson MD [address] [place] [phone] Spasm of thoracic back muscle Allergies Active Allergy Reactions Criticality Noted Date Comments Bupropion Hives 07/04/2017 documented as of this encounter (statuses as of 07/12/2024) Medications D-Care Glucometer w/Device Kit Use as directed. 1 Kit 1 12/28/19 21 Active OneTouch Verio w/Device Kit Use up to 4 times a day E11.9 1 Kit 12/31/19 21 Active OneTouch Verio In Vitro Strip (Glucose Blood) Use up to 4 times a day E11.9 100 Strip 11 12/31/19 21 Active traZODone HCl 100 MG Oral Tablet (Desyrel)Indicat ions:Moderate episode of recurrent major depressive disorder (HCC) Take by mouth 1 Tablet before bedtime. 90 Tablet 3 03/08/20 22 Active Additional Information Patient not taking.Reported on 01/09/2024 Acetaminophen-Co deine #3 300-30 MG Oral Tablet (Tylenol #3) Take 1 Tablet by mouth every 4 hours as needed for Pain, Moderate or Pain, Severe. May take 2 tablets for severe pain. 10 Tablet 1 08/02/19 23 Active hydrOXYzine HCl 25 MG Oral Tablet Take 1 Tablet by mouth at bedtime. 30 Tablet 5 09/10/19 24 Active Additional Information Patient not taking.Reported on 01/09/2024 Triamcinolone Acetonide 0.1 % External Cream (Aristocort) Apply to rash on trunk twice a day for 2 weeks then as needed 454 g 1 09/10/19 24 Active Rosuvastatin Calcium 20 MG Oral Tablet (Crestor) Take 1 Tablet by mouth daily. 90 Tablet 1 09/13/19 24 Active Additional Information Patient not taking.Reported on 12/05/2023 Sertraline HCl 100 MG Oral Tablet (Zoloft)Indicati ons:Moderate episode of recurrent major depressive disorder (HCC) TAKE TWO TABLETS BY MOUTH IN THE MORNING 180 Tablet 03/04/20 24 Active Lisinopril 10 MG Oral Tablet (Prinivil)Indica tions:Hypertensi on goal BP (blood pressure) < 140/90 TAKE 1 TABLET BY MOUTH before bedtime 90 Tablet 03/04/20 24 Active Trulicity 0.75 MG/0.5ML Subcutaneous Solution Pen-injector (Dulaglutide) inject 1 pen under the skin once a week 6 mL 04/03/20 24 Active Trulicity 0.75 MG/0.5ML Subcutaneous Solution Auto-injector (Dulaglutide) Inject 0.75 mg under the skin once a week. 2 mL 06/17/20 24 Active Cyclobenzaprine HCl 10 MG Oral Tablet (Flexeril)Indica tions:Spasm of thoracic back muscle Take 1 Tablet by mouth at bedtime. 10 Tablet 07/12/19 25 Active Cyclobenzaprine HCl 10 MG Oral Tablet (Flexeril)Indica tions:Spasm of thoracic back muscle Take 1 Tablet by mouth at bedtime. 10 Tablet 12/29/19 23 025 Discontin ued(Refil l) documented as of this encounter (statuses as of 07/12/2024) Active Problems Problem Noted Date Diagnosed Date Overweight (BMI 25.0-29.9) 01/20/2024 Chronic insomnia 11/03/2023 Type 2 diabetes mellitus wit h hemoglobin A1c goal of less than 7.0% 12/08/2019 Dyslipidemia 12/08/2019 Moderate episode of recurrent major depressive d isorder 11/06/2018 documented as of this encounter (statuses as of 07/12/2024) Resolved Problems Problem Noted Date Diagnosed Date Resolved Date Left wrist pain 05/16/2023 10/04/2023 Bilateral carpal tunnel syndrome 04/13/2021 11/04/2023 Menorrhagia 12/16/2018 08/31/2019 documented as of this encounter (statuses as of 07/12/2024) Immunizations Name Administration Dates Next Due TDAP [...] No 10/02/2023 Does the household have a [facility] source of income? (Household - for ages [...] Telephone Encounter - Risa Jackson MD - 07/12/2024 11:00 AM ESTSigned Prescriptions: Disp Refills Cyclobenzaprine HCl 10 MG Oral Tablet (Fle*10 Tab*0 Sig: Take 1 Tablet by mouth at bedtime. Authorizing Provider: RISA JACKSON * Telephone Encounter - Vinny Salazar [facility] - 07/11/2024 2:20 PM EST Pending Prescriptions: Disp Refills Cyclobenzaprine HCl 10 MG Oral Tablet (Fle*10 Tab*0 Sig: Take 1 Tablet by mouth at bedtime. * Telephone Encounter - Vinny Salazar RPh - 07/11/2024 2:20 PM EST Telepharmacy not authorized to fill for this medication per protocol. Please approve if appropriate. Pending Prescriptions: Disp Refills Cyclobenzaprine HCl 10 MG Oral Tablet (Fle*10 Tab*0 Sig: Take 1 Tablet by mouth at bedtime. 04/12/2022 (in office), 12/03/2019 (telemedicine) Visit date not found If no future appointments scheduled, and last appointment is greater than a year ago, please schedule patient for a follow-up appointment Last date the medication was ordered: Pharmacy: [id number] [facility] Is this request for a controlled substance? No Urine Drug Screen:No results found for this or any previous visit. Patient Phone Numbers Labs: Lab Results Component Value Date/Time CREAT 1.0 09/12/2023 12:41 PM POTASSIUM 4.9 09/12/2023 12:41 PM TSH 2.57 09/12/2023 12:41 PM LDL 190 (H) 09/12/2023 12:41 PM LDL 153 (H) 12/05/2019 08:08 AM LDL NOT APPLICABLE 12/05/2019 08:08 AM ALT 17 09/12/2023 12:41 PM HGBA1C 5.9 (H) 09/12/2023 12:41 PM HGBA1C 10.5 (H) 12/05/2019 08:08 AM documented in this encounter Plan of Treatment Scheduled Procedures Name Priority Associated Diagnoses Date/Ti me COLONOSCOPY FLEXIBLE PROXIMA L DIAGNOSTIC Recall Special screening for malignant neoplasms, colon Health Maintenance Due Date Last Done Comments Hepatitis C Screening 1989 Hepatitis B Vaccine (1 of 3 - 19+ 3-dose series) 1990 Pneumococcal Vaccine: 50+ Years (1 of 2 - PCV) 1990 HPV/Co-Test [...] as of this encounter Visit Diagnoses Diagnosis Spasm of thoracic back muscle documented in this encounter
--- OUTSIDE RECORDS SUMMARY | 2024-07-17 19:35 | External Medical Summary | Summary of Care ---
Author Name Unknown Organization [facility] Address [address] [place] [address] Phone [phone] Care Team Providers Care Numerical Control Machine Machinist Name Role Phone J Carlos Rios MD Primary Care Provider [phone] Encounter Details Date Type Department Care Team (Late st Contact Info) Description 03/18/2024 Orders Only Outcomes Research Department [address], [place] [id number] Michelle Chinchilla [facility] Other*[id number] Allergies Active Allergy Reactions Criticality Noted Date Comments Bupropion Hives 07/04/2017 documented as of this encounter (statuses as of 03/18/2024) Medications Medication Sig Dispensed Refills Start Date [...] Active traZODone HCl 100 MG Oral Tablet (Desyrel)Indication s:Moderate episode of recurrent major depressive disorder (HCC) Take by mouth 1 Tablet before bedtime. 90 Tablet 3 03/08/2022 Active Additional Information Patient not taking.Reported on 01/09/2024 Acetaminophen-Codei ne #3 300-30 MG Oral Tablet (Tylenol #3) Take 1 Tablet by mouth every 4 hours as needed for Pain, Moderate or Pain, Severe. May take 2 tablets for severe pain. 10 Tablet 1 08/02/2022 Active Cyclobenzaprine HCl 10 MG Oral Tablet (Flexeril)Indicatio ns:Spasm of thoracic back muscle Take 1 Tablet [...] Active Sertraline HCl 100 MG Oral Tablet (Zoloft)Indications :Moderate episode of recurrent major depressive disorder (HCC) TAKE TWO TABLETS BY MOUTH IN THE MORNING 180 Tablet 03/04/2024 Active Lisinopril 10 MG Oral Tablet (Prinivil)Indicatio ns:Hypertension goal BP (blood pressure) < 140/90 TAKE 1 TABLET BY MOUTH before bedtime 90 Tablet 03/04/2024 Active documented as of this encounter (statuses as of 03/18/2024) Active Problems Problem Noted Date Diagnosed Date Overweight (BMI 25.0-29.9) 01/20/2024 Chronic insomnia 11/03/2023 Type 2 diabetes mellitus wit h hemoglobin A1c goal of less than 7.0% 12/08/2019 Dyslipidemia 12/08/2019 Moderate episode of recurrent major depressive d isorder 11/06/2018 documented as of this encounter (statuses as of 03/18/2024) Resolved Problems Problem Noted Date Diagnosed Date Resolved Date Left wrist pain 05/16/2023 10/04/2023 Bilateral carpal tunnel syndrome 04/13/2021 11/04/2023 Menorrhagia 12/16/2018 08/31/2019 documented as of this encounter (statuses as of 03/18/2024) Immunizations Name Administration Dates Next Due TDAP [...] on file documented as of this encounter Plan of Treatment Scheduled Orders Name Type Priority Associated Diagnoses Orde r Schedule MYCODE SUBSEQUENT ADULT Lab Routine [facility] Other*[id number] Every 6 Months for 2 Occurrences starting 03/18/2024 until 04/07/2025 Scheduled Procedures Name Priority Associated Diagnoses Date/Ti [...] 09/11/2024 09/12/2023, 04/12/2022 Lipid Panel 09/11/2028 09/12/2023, 0 10/2019, 08/24/1998 DTap/Tdap Vaccines (2 - Td or Tdap) 09/29/2031 09/28/2021 HPV (Gardasil) Vaccine Aged Out No lo nger eligible based on patient's age to complete this topic MENINGOCOCCAL (MENACTRA/MENVEO) Aged Out No longer eligible based on patient's age to complete this topic documented as of this encounter Medical Devices Not on filedocumented as of this encounter Visit Diagnoses Diagnosis [facility] Other*[id number] documented in this encounter Care Teams Numerical Control Machine Machinist Relationship Specialty Start Date End Date J Carlos Rios MD [address] [place] [address] PCP - General Family Medicine 07/04/17 documented as of this encounter
--- NOTE | 2024-07-17 20:13 | Magnetic Resonance Report ---
Exam(s): MRI HEAD Without Contrast EXAM: MR Head Without Intravenous Contrast CLINICAL HISTORY: Reason for exam: cva. TECHNIQUE: Magnetic resonance images of the head/brain without intravenous contrast in multiple planes. COMPARISON: CT head, CTA head 07/17/24 FINDINGS: Brain: Cortical gyriform diffusion restriction within the left parietal lobe spanning a distance of 2.7 cm, suggesting acute/subacute cerebral ischemia within the left MCA territory. Diffusion restriction within the right cerebellar hemisphere measuring 1.5 cm in diameter consistent with acute/subacute right cerebellar infarct. No acute intracranial hemorrhage. No mass-effect or shift. Age-appropriate parenchymal volume. Small region of subcortical FLAIR signal hyperintensity in the left occipital lobe may represent a chronic subcortical infarct. Scattered foci of FLAIR signal hyperintensity within the periventricular and deep cerebral white matter consistent with mild chronic small vessel ischemic disease. Ventricles: Unremarkable. No hydrocephalus. Bones/joints: Unremarkable. No acute fracture. Sinuses: Unremarkable as visualized. Mastoid air cells: Unremarkable as visualized. No mastoid effusion. Orbits: Unremarkable as visualized. Middle cerebral arteries: Abnormal truncation of the proximal left M1 flow void is seen on reference CT exam with numerous small collateral vessels. IMPRESSION: 1. Abnormal truncation of the proximal left M1 flow void is seen on reference CTA exam with numerous small collateral vessels. 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 2. Cortical gyriform diffusion restriction within the left parietal lobe spanning a distance of 2.7 cm, suggesting acute/subacute cerebral ischemia within the left MCA territory. 3. Diffusion restriction within the right cerebellar hemisphere measuring 1.5 cm in diameter consistent with acute/subacute right cerebellar infarct. Communications: Call Doctor Stroke Electronically signed by: Marie Hancock M.D. 07/17/24 20:12 PM
[2024-07-17] MEDS: INSULIN ASPART PER UNIT CHARGE SC SCH (20:53)
--- NOTE | 2024-07-17 21:55 | Electrocardiogram Report ---
Test Reason : Blood Pressure : */* mmHG Vent. Rate : 72 BPM Atrial Rate : 72 BPM P-R Int : 150 ms QRS Dur : 84 ms QT Int : 428 ms P-R-T Axes : 51 -59 50 degrees QTcB Int : 468 ms Normal sinus rhythm Left axis deviation Anterior infarct , age undetermined Nonspecific ST abnormality Abnormal ECG No previous ECGs available Confirmed by Farhan Torre ([id number]) on 07/17/2024 9:55:19 PM Referred By: Confirmed By: Farhan Torre
[2024-07-18] MEDS: ONDANSETRON INJ 2 MG/ML 2 ML VIAL IV PRN (04:55)
[2024-07-18 06:24] LABS: Appearance Urine Clear (Clear); Bilirubin Urine Negative (Negative); Blood Urine Negative (Negative); Color Urine Yellow; Glucose Urine UA Negative (Negative); Ketones Urine Negative (Negative); Leukocyte Esterase Urine Negative (Negative); Nitrite Urine Negative (Negative); Protein Urine Negative (Negative); Specific Gravity Urine 1.033 (1.000-1.030); Urobilinogen Urine Negative (Negative); pH Urine 6.5 (4.5-7.5)
[2024-07-18 06:30] LABS: Basophils # (auto) 0.15 K/uL (0.00-0.20); Basophils % (auto) 1.1 %; Eosinophils # (auto) 0.24 K/uL (0.00-0.50); Eosinophils % (auto) 1.8 %; Hematocrit (blood only) 47.5 % (37.0-47.0); Hemoglobin 16.3 g/dl (12.0-16.0); Immature Granulocytes # (auto) 0.05 K/uL (0.01-0.20); Immature Granulocytes % (auto) 0.4 %; Lymphocytes # (auto) 1.91 K/uL (1.20-3.40); Lymphocytes % (auto) 14.4 %; Mean Corpuscular Hemoglobin 25.7 pg (25.0-34.0); Mean Corpuscular Hgb Conc 34.3 g/dL (32.0-36.0); Mean Corpuscular Volume 74.8 fL (80.0-100.0); Mean Platelet Volume 10.5 fL (9.4-12.4); Monocytes % (auto) 8.3 %; Neutrophils # (auto) 9.83 K/uL (1.40-6.50); Platelet Count 223 K/uL (130-400); RDW Coefficient of Variation 16.3 % (11.5-14.5); RDW Standard Deviation 42.1 fL (36.4-46.3); Red Blood Count 6.35 M/uL (4.20-5.40); White Blood Count 13.28 K/ul (4.8-10.8)
[2024-07-18 06:44] LABS: Calcium 9.5 mg/dl (8.6-10.3); Chol HDL Ratio 5.3 (0-5); Creatinine Clr Calc Pharmacy 82.1 ml/min; Potassium 3.4 mmol/L (3.5-5.1)
[2024-07-18 07:15] LABS: Estimated Average Glucose 123 mg/dl; Hemoglobin A1C 5.9 % (4.5-5.6)
[2024-07-18] MEDS: CLOPIDOGREL BISULFATE 75 MG TAB PO SCH (08:28)
[2024-07-18] MEDS: SERTRALINE HCL 100 MG TABLET PO SCH (08:28)
[2024-07-18] MEDS: FAMOTIDINE 20 MG TAB PO PRN (08:28)
[2024-07-18] MEDS: EZETIMIBE 10 MG TAB PO SCH (08:28)
[2024-07-18] MEDS: ATORVASTATIN 40 MG TAB PO SCH (08:28)
[2024-07-18] MEDS: ASPIRIN 81 MG ECTAB PO SCH (08:29)
[2024-07-18] MEDS: hydrALAZINE HCL 20 MG/ML VIAL IV ONE (08:31)
[2024-07-18] MEDS: NITROGLYCERIN 2% OINTMENT 30GM TUBE EXT STA (08:31)
--- NOTE | 2024-07-18 09:13 | Neurology Consultation ---
Date of Consultation July 18, 2024 Assessment & Plan (1) Embolic stroke: Pt is a 54 yo woman who presented for vertigo/dizziness/nausea x 1 week and speech changes x 2 days was found to have multifocal embolic infarcts on MRI. CTA is notable for L MCA occlusion with visible lenticulostriate collaterals lik sarah indicating a chronic occlusion. She is doing well and fortunately symptoms have improved. Multifocal nature of infarcts indicates a cardioembolic cause this is somewhat unusual given the L M1 occlusion and a hypotensive process could be considered as well (although this does not explain the cerebellar stroke as well). Blood pressure should be tightly controleld with avoidance of both hypotension and hypertension given occlusion. She has no tobacco history and so etiology of occlusion could be congenital v non-atherosclerotic process. Plan -- Continue ASA 81, Plavix 75 until patient is seen in neurology follow up to decide on final length of treatment -- Pt should avoid both hypertension and hypotension given L MCA occlusion SBP goal 120-140 outpatient should be gradually reduced to 140-160 while inpatient -- obtain TTE -- Ziopatch at discharge -- LDL goal < 70, pt on atorvastatin 40 mg -- A1c at goal -- Patient should have referral or NSGY outpatient to consider DSA for L MCA occlusion -- Patient should follow-up with Neurology outpatient 4-6 weeks. Telehealth Consultation Telehealth Information Telehealth Information: I performed this visit using a real-time telehealth connection between my location and the patients location ([facility]). After connecting through interactive tele-video, patient was identified by name and date of and/or wristband check.Patient (or authorized healthcare represe ntative) was informed that this was a telemedicine visit and it was being conducted confidentially over secure lines. My office door was closed and no one else was present in the room with me.Patient (or authorized healthcare ocean import representative) provided consent to proceed with the visit, expressed an understanding of privacy and security of the telemedicine visit, and gave permission to have a hospital ocean import representative in the room in order to assist with the visit and to conduct portions of the visit, as needed. I informed the patient (or authorized healthcare ocean import representative) that I reviewed their record and presented the opportunity for them to ask any questions regarding the visit today. The patient agreed to participate. History of Present Illness Reason for Consultation: Stroke Attending Physician: Myrna Ruiz MD History of Present Illness Patient states she has not been feeling well for the last week wtih flu like symptoms. States that perhaps a week ago she noted that she was dizzy, described as room spinning. Unable to qualify if it was acute or gradual onset. About two days prior she was checked on by her mother and found to have difficulty producing words. She was seen by telestroke and found to have multifocal embolic infarcts in the L parietal cortex and r cerebellum as well as a L MCA occlusion. Her symptoms seemed to be improving and so was managed on ASA and plavix. Speaking to her she states she feels well, has been out of bed and felt fine. She was unaware of chronic occlusion, endorses smoking marijuana but no tobacco use. No history of stroke. Denies further symptom. Allergies Allergy/AdvReac Type Severity Reaction Status Date / Time bupropion [From Wellbutrin] Allergy Hives Verified 07/17/24 15:55 Home Medications Medication Instructions Recorded Confirmed Type cyclobenzaprine 10 mg tablet 10 mg PO HS 07/17/24 07/17/24 History dulaglutide 0.75 mg/0.5 mL 0.75 mg subcut WK 07/17/24 07/17/24 History subcutaneous pen injector (Trulicity) lisinopril 10 mg tablet 10 mg PO HS 07/17/24 07/17/24 History sertraline 100 mg tablet 200 mg PO QAM 07/17/24 07/17/24 History Patient History Medical History Diabetes Hypertension Surgical History History of carpal tunnel surgery Hx laparoscopic cholecystectomy Hx of section Social History Smoking Status: Never smoker Second Hand Exposure: No; Do You Dip or Chew Tobacco: No; Tobacco Cessation Education Requested by Patient: No Hx Alcohol Use: No Hx Substance Use: Yes Last Used Substance: Days (ago) Substance Use Type Other:: MEDICAL MARIJUANA Preferred Language: Moroccan Communication Ability: Effective Puppet Developer Required: No Beliefs That Will Affect Care: None Current Living Situation: Parent Other Information That Helps Us Care for You: No Feels Safe at Home: Yes Safety Concerns: Feels Safe At This Time Assistive Devices: Glasses Review of Systems Negative aside from HPI Physical Exam Patient seen resting comfortably in bed, fully conversational, able to answer questions accurately and follow complex commands, able to repeat and name simple objects. No gaze deviation, no facial assymetry. Able to lift all extremities ag ainst gravity without drift. No ataxia on FtN. Gait and reflexes deferred Results & Data Vital Signs (Past 12 Hours) Vital Signs Temp Pulse Pulse Resp BP Pulse Ox O2 Del Method 07/18/24 07:48 36.4 C L 69 17 218/118 H 98 Room Air 07/18/24 05:35 72 07/18/24 03:56 36.6 C 56 L 18 159/85 H 96 Room Air 07/17/24 23:07 36.6 C 59 L 17 163/96 H 96 Room Air 07/17/24 22:40 61 Laboratory Results LDL 110 A1c 5.9 Diagnostic Findings MRI 07/17/2024: IMPRESSION: 1. Abnormal truncation of the proximal left M1 flow void seen on reference CTA exam with numerous small collateral vessels. 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 2. Cortical gyriform diffusion restriction within the left parietal lobe spanning a distance of 2.7 cm, suggesting acute/subacute cerebral ischemia within the left MCA territory. 3. Diffusion restriction within the right cerebellar hemisphere measuring 1.5 cm in diameter consistent with acute/subacute right cerebellar infarct. CTA H/N 07/17/2024: IMPRESSION: Findings are concerning for a left MCA occlusion. No evidence of hemorrhagic conversion. No definite CT findings of infarct are seen at this time, however. Medications Administered Per MAR
[2024-07-18] MEDS: lisinopril 10 MG TAB PO SCH (09:18)
--- NOTE | 2024-07-18 11:03 | Pharmacy Report ---
- Date of Service July 18, 2024 - Pharmacy CVA/TIA Medication Review Medications to Prevent Stroke handout has been added to the patients discharge packet. Antiplatelet(s) * aspirin 81 mg daily * plavix 75 mg daily Cholesterol * High intensity statin: atorvastatin 40 mg daily DVT Prophylaxis * SCD knee Therapeutic Anticoagulation * No history of Afib/Aflutter noted * Ziopatch for discharge Type 2 Diabetes * Patient has T2DM and patient is prescribed dulaglutide
[2024-07-18] MEDS: METOPROLOL TARTRATE 1 MG/ML VIAL IV PRN (11:49)
[2024-07-18] MEDS: METOPROLOL TARTRATE 25 MG TAB PO SCH (11:50)
[2024-07-18] MEDS: NITROGLYCERIN 2% OINTMENT 30GM TUBE EXT SCH (14:36)
[2024-07-18] MEDS: hydrALAZINE HCL 20 MG/ML VIAL IV STA (15:46)
[2024-07-18] MEDS: LORazepam 0.5 MG TAB PO STA (15:46)
--- NOTE | 2024-07-18 16:16 | Hospitalist Progress Note ---
Date of Service July 18, 2024 Assessment & Plan (1) Expressive aphasia: (2) Stroke-like symptoms: (3) Hypertension: (4) Diabetes: Plan This is a 54-year-old female with significant past medical history of T2DM, HTN, HLD, depression and chronic insomnia who presents to ED secondary to difficulty speaking. Sx occurred > 24hrs ago. Embolic stroke with left MCA occlusion- presented with Expressive Aphasia Stroke like sx Pt seen by Tele stroke and given improvement of sx it was recommended pt remain here for further stroke work up obtain MRI brain, echo Started on ASA 81mg daily, Plavix 75mg daily and lipitor 40mg daily Appreciate neurology input and recommendation Echo has been obtained and the result is pending Patient remains anxious and free from any neurological symptoms Will need PT and OT evaluation and also outpatient neuro and neurosurgery follow-up Hypertensive urgency Her blood pressure has been running high since admission with systolic as high as 203/114 Her lisinopril has been restarted and added with Lopressor 25 mg twice daily She has been also getting Lopressor 5 mg IV every 6 hourly with blood pressure parameters and also hydralazine 10 mg IV every 6 hourly alternating with blood pressure with blood pressure parameters Received NTP without any improvement of blood pressure Will observe in telemetry unit She is not having any acute symptoms from high blood pressure Addendum 20:48 MRI:. Abnormal truncation of the proximal left M1 flow void is seen on reference CTA exam with numerous small collateral vessels. Appearance suggest chronic occlusion of the left MCA.2. Cortical gyriform diffusion restr iction within the left parietal lobe spanning a distance of 2.7 cm, suggesting acute/subacute cerebral ischemia within the left MCA territory.3. Diffusion restriction within the right cerebellar hemisphere measuring 1.5 cm in diameter consistent with acute/subacute right cerebellar infarct. Acute R cerebellar hemisphere and L parietal Lobe Infarct reached out to Tele Stroke Dr. Box : continue ASA, Plavix, Lipitor and add Zetia Pt with 60% R vertebral stenosis - medical management is recommended As above T2DM - obtain a1c in a.m-- 5.9., Hold trulicity, ISS per protocol Depression: Chronic, stable, continue zoloft Ativan 0.5 mg 1 dose was given for anxiety DVT ppx: SCDS For now, await MRI will start subcu heparin FULL CODE PCP: Gabriel Dispo: admit to PCU for stroke work up Discussed with the mom and the patient in detail Admission and Anticipated Discharge Date Admission Date: July 17, 2024 Subjective 07/18/2024 The patient was seen and examined in telemetry unit She was admitted with expressive aphasia and strokelike symptoms Noted to have very high blood pressure and also left MCA occlusion and right cerebellar infarct Remains anxious and denies any further neurological symptoms Review of Systems Review of Systems: All systems reviewed and are unremarkable except as noted below Physical Exam Physical Exam: Lying in bed without any acute distress Constitutional: well developed, well nourished, + ill appearing and average body habitus Eyes: PERRL, conjunctivae normal, anicteric sclerae ENMT: external ear and nose normal, oropharynx normal Neck: trachea midline, no thyromegaly Respiratory: no respiratory distress Auscultation: lungs clear to auscultation bilaterally Cardiovascular: Rate/Rhythm: regular rate and regular rhythm; not tachycardic Heart Sounds: normal S1 and normal S2; no murmur Extremities: no edema Gastrointestinal (Abdomen): Inspection/Auscultation: normal bowel sounds; abdomen not distended Percussion/Palpation: + abdomen tender and abdomen soft Musculoskeletal: no acute arthritis involving any of the joint Neurologic: normal touch/pain/proprioception and moves all extremities; no focal motor deficits Lymphatic: no cervical or axillary lymphadenopathy Results & Data Results & Data Vital Signs (Past 12 Hours) Vital Signs Temp Pulse Pulse Resp BP BP BP 07/18/24 15:30 65 17 203/114 H 07/18/24 13:00 71 07/18/24 12:29 85 184/124 H 07/18/24 11:49 76 201/113 H 07/18/24 10:59 76 19 201/113 H 07/18/24 08:00 07/18/24 07:48 36.4 C L 69 17 218/118 H 07/18/24 05:35 72 Pulse Ox O2 Del Method 07/18/24 15:30 98 Room Air 07/18/24 13:00 07/18/24 12:29 07/18/24 11:49 07/18/24 10:59 96 Room Air 07/18/24 08:00 Room Air 07/18/24 07:48 98 Room Air 07/18/24 05:35 Laboratory Results Short CBC 07/18/24 Range/Units 06:08 WBC 13.28 H (4.8-10.8) K/ul Hgb 16.3 H (12.0-16.0) g/dl Hct 47.5 H (37.0-47.0) % Plt Count 223 (130-400) K/uL BMP 07/18/24 06:08 Sodium 135 L Potassium 3.4 L Chloride 104 Carbon Dioxide 18 L BUN 15 Creatinine 0.88 Glucose 185 H Calcium 9.5 Urine 07/18/24 Range/Units 06:00 Urine Color Yellow Urine Appearance Clear (Clear) Urine pH 6.5 (4.5-7.5) Ur Specific [place] 1.033 H (1.000-1.030) Urine Protein Negative (Negative) Urine Glucose (UA) Negative (Negative) Medications Administered Current Inpatient Medications Acetaminophen (Acetaminophen 325 Mg Tab) 650 mg PO Q4H PRN PRN Reason: Pain or Fever Stop: 08/16/24 18:12 Aspirin (Aspirin 81 Mg Ectab) 81 mg PO DAILY [facility] Stop: 08/17/24 08:59 Last Admin: 07/18/24 08:29 Dose: 81 mg Atorvastatin Calcium (Atorvastatin 40 Mg Tab) 40 mg PO [facility] Stop: 08/17/24 08:59 Last Admin: 07/18/24 08:28 Dose: 40 mg Clopidogrel Bisulfate (Clopidogrel Bisulfate 75 Mg Tab) 75 mg PO [facility] Stop: 08/17/24 08:59 Last Admin: 07/18/24 08:28 Dose: 75 mg Dextrose (Dextrose 50% 50 Ml Syringe) 25 - 50 ml IV UD PRN; Protocol PRN Reason: Hypoglycemia Protocol Stop: 08/16/24 18:12 Ezetimibe (Ezetimibe 10 Mg Tab) 10 mg PO [facility] Stop: 08/17/24 08:59 Last Admin: 07/18/24 08:28 Dose: 10 mg Famotidine (Famotidine 20 Mg Tab) 20 mg PO DAILY PRN PRN Reason: Heartburn Stop: 08/16/24 18:12 Last Admin: 07/18/24 08:28 Dose: 20 mg Glucagon (Glucagon For Inj 1 Mg Vial) 1 mg SQ UD PRN; Protocol PRN Reason: Hypoglycemia Protocol Stop: 08/16/24 18:12 Glucose (Glucose 40% Gel 15 Gm Tube) 15 - 30 gm PO UD PRN; Protocol PRN Reason: Hypoglycemia Protocol Stop: 08/16/24 18:12 Glucose (Glucose 10 Tab/Tube) 4 - 8 tab PO UD PRN; Protocol PRN Reason: Hypoglycemia Protocol Stop: 08/16/24 18:12 Insulin Aspart (Insulin Aspart Per Unit Charge) 0 units SC ACHS [facility] Stop: 08/16/24 20:59 Last Admin: 07/18/24 12:42 Dose: 1 units Lisinopril (Lisinopril 10 Mg Tab) 10 mg PO QAM [facility] Stop: 08/17/24 08:59 Last Admin: 07/18/24 09:18 Dose: 10 mg Melatonin (Melatonin 3 Mg Tab) 6 mg PO HS PRN PRN Reason: Sleep Stop: 08/16/24 20:59 Metoprolol Tartrate (Metoprolol Tartrate 25 Mg Tab) 25 mg PO BID [facility] Stop: 08/17/24 11:29 Last Admin: 07/18/24 11:50 Dose: 25 mg Metoprolol Tartrate (Metoprolol Tartrate 1 Mg/Ml Vial) 5 mg IV Q6 PRN PRN Reason: Blood Pressure - High Stop: 08/17/24 11:59 Last Admin: 07/18/24 11:49 Dose: 5 mg Miscellaneous (Carbohydrates For Hypoglycemia ) 15 - 30 gm PO UD PRN PRN Reason: Hypoglycemia Protocol Stop: 08/16/24 18:12 Ondansetron HCl (Ondansetron Inj 2 Mg/Ml 2 Ml Vial) 4 mg IV Q6H PRN PRN Reason: Nausea Stop: 08/16/24 18:12 Last Admin: 07/18/24 09:50 Dose: 4 mg Sertraline HCl (Sertraline Hcl 100 Mg Tablet) 200 mg PO QAM [facility] Stop: 08/17/24 08:59 Last Admin: 07/18/24 08:28 Dose: 200 mg
[2024-07-18] MEDS: HEPARIN SOD 5,000 UNIT/0.5 ML VIAL SQ SCH (20:57)
[2024-07-18] MEDS: MELATONIN 3 MG TAB PO PRN (21:06)
[2024-07-19 06:25] LABS: Basophils # (auto) 0.17 K/uL (0.00-0.20); Basophils % (auto) 1.4 %; Eosinophils # (auto) 0.49 K/uL (0.00-0.50); Eosinophils % (auto) 4.2 %; Hematocrit (blood only) 46.9 % (37.0-47.0); Hemoglobin 16.1 g/dl (12.0-16.0); Immature Granulocytes # (auto) 0.04 K/uL (0.01-0.20); Immature Granulocytes % (auto) 0.3 %; Lymphocytes # (auto) 3.06 K/uL (1.20-3.40); Mean Corpuscular Hemoglobin 25.7 pg (25.0-34.0); Mean Corpuscular Hgb Conc 34.3 g/dL (32.0-36.0); Mean Corpuscular Volume 74.9 fL (80.0-100.0); Mean Platelet Volume 10.2 fL (9.4-12.4); Monocytes # (auto) 1.15 K/uL (0.11-0.59); Monocytes % (auto) 9.8 %; Neutrophils # (auto) 6.85 K/uL (1.40-6.50); Neutrophils % (auto) 58.3 %; Platelet Count 256 K/uL (130-400); RDW Coefficient of Variation 15.9 % (11.5-14.5); RDW Standard Deviation 41.4 fL (36.4-46.3); Red Blood Count 6.26 M/uL (4.20-5.40); White Blood Count 11.76 K/ul (4.8-10.8)
[2024-07-19 06:41] LABS: BUN Creatinine Ratio 18.6 (10-20); Calcium 9.3 mg/dl (8.6-10.3); Potassium 3.4 mmol/L (3.5-5.1)
[2024-07-19 11:41] VITALS: BP 117/66; PULSE 60; RESP 18; TEMP 98.2; O2SAT 94
--- NOTE | 2024-07-19 11:41 | Hospitalist Progress Note ---
Date of Service July 19, 2024 Assessment & Plan (1) Expressive aphasia: (2) Stroke-like symptoms: (3) Hypertension: (4) Diabetes: Plan This is a 54-year-old female with significant past medical history of T2DM, HTN, HLD, depression and chronic insomnia who presents to ED secondary to difficulty speaking. Sx occurred > 24hrs ago. Embolic stroke with left MCA occlusion- presented with Expressive Aphasia Stroke like sx Pt seen by Tele stroke and given improvement of sx it was recommended pt remain here for further stroke work up obtain MRI brain, echo Started on ASA 81mg daily, Plavix 75mg daily and lipitor 40mg daily Appreciate neurology input and recommendation Echo has been obtained and the result is pending Patient remains anxious and free from any neurological symptoms Will need PT and OT evaluation and also outpatient neuro and neurosurgery follow-up She has been stable without any neurological symptoms and she has been independently mobile in the room and in the hallway She will be discharged home this afternoon Will get her an appointment with neurology neurosurgery as an outpatient Hypertensive urgency Her blood pressure has been running high since admission with systolic as high as 203/114 Her lisinopril has been restarted and added with Lopressor 25 mg twice daily She has been also getting Lopressor 5 mg IV every 6 hourly with blood pressure parameters and also hydralazine 10 mg IV every 6 hourly alternating with blood pressure with blood pressure parameters Received NTP without any improvement of blood pressure Will observe in telemetry unit She is not having any acute symptoms from high blood pressure She noted to have bradycardia at 56 and blood pressure has been 117/77 this morning Her metoprolol has been discontinued and she will continue with lisinopril as before She will have follow-up appointment with the PCP Addendum 20:48 MRI:. Abnormal truncation of the proximal left M1 flow void is seen on reference CTA exam with numerous small collateral vessels. Appearance suggest chronic occlusion of the left MCA.2. Cortical gyriform diffusion restriction within the left parietal lobe spanning a distance of 2.7 cm, suggesting acute/subacute cerebral ischemia within the left MCA territory.3. Diffusion restriction within the right cerebellar hemisphere measuring 1.5 cm in diameter consistent with acute/subacute right cerebellar infarct. Acute R cerebellar hemisphere and L parietal Lobe Infarct reached out to Tele Stroke Dr. Box : continue ASA, Plavix, Lipitor and add Zetia Pt with 60% R vertebral stenosis - medical management is recommended As above T2DM - obtain a1c in a.m-- 5.9., Hold trulicity, ISS per protocol Depression: Chronic, stable, continue zoloft Ativan 0.5 mg 1 dose was given for anxiety DVT ppx: SCDS For now, await MRI will start subcu heparin FULL CODE PCP: Gabriel Dispo: admit to PCU for stroke work up Discussed with the mom and the patient in detail Admission and Anticipated Discharge Date Admission Date: July 17, 2024 Subjective 07/18/2024 The patient was seen and examined in telemetry unit She was admitted with expressive aphasia and strokelike symptoms Noted to have very high blood pressure and also left MCA occlusion and right cerebellar infarct Remains anxious and denies any further neurological symptoms 07/19/2024 The patient was seen and examined in telemetry unit She has been much better today and has been ambulating in the room and in the hallway without any difficulties Does not have any neurological symptoms She wants to go home Review of Systems Review of Systems: All systems reviewed and are unremarkable except as noted below Physical Exam Physical Exam: Lying in bed without any acute distress Constitutional: well developed, well nourished, + ill appearing and average body habitus Eyes: PERRL, conjunctivae normal, anicteric sclerae ENMT: external ear and nose normal, oropharynx normal Neck: trachea midline, no thyromegaly Respiratory: no respiratory distress Auscultation: lungs clear to auscultation bilaterally Cardiovascular: Rate/Rhythm: regular rate and regular rhythm; not tachycardic Heart Sounds: normal S1 and normal S2; no murmur Extremities: no edema Gastrointestinal (Abdomen): Inspection/Auscultation: normal bowel sounds; abdomen not distended Percussion/Palpation: + abdomen tender and abdomen soft Neurologic: normal touch/pain/proprioception and moves all extremities; no f ocal motor deficits Lymphatic: no cervical or axillary lymphadenopathy Results & Data Results & Data Vital Signs (Past 12 Hours) Vital Signs Temp Pulse Pulse Resp BP Pulse Ox O2 Del Method 07/19/24 07:25 56 L 07/19/24 07:01 36.8 C 57 L 20 117/77 95 Room Air 07/19/24 03:50 36.3 C L 54 L 16 105/71 94 Room Air 07/18/24 23:39 63 Laboratory Results Short CBC 07/19/24 Range/Units 05:41 WBC 11.76 H (4.8-10.8) K/ul Hgb 16.1 H (12.0-16.0) g/dl Hct 46.9 (37.0-47.0) % Plt Count 256 (130-400) K/uL [facility] 07/19/24 05:41 Sodium 131 L Potassium 3.4 L Chloride 100 Carbon Dioxide 22 BUN 16 Creatinine 0.86 Glucose 126 H Calcium 9.3 Medications Administered Current Inpatient Medications Acetaminophen (Acetaminophen 325 Mg Tab) 650 mg PO Q4H PRN PRN Reason: Pain or Fever Stop: 08/16/24 18:12 Aspirin (Aspirin 81 Mg Ectab) 81 mg PO DAILY [facility] Stop: 08/17/24 08:59 Last Admin: 07/19/24 09:09 Dose: 81 mg Atorvastatin Calcium ([facility] 40 Mg Tab) [facility] Stop: 08/17/24 08:59 Last Admin: 07/19/24 09:08 Dose: 40 mg Clopidogrel Bisulfate (Clopidogrel Bisulfate 75 Mg Tab) [facility] Stop: 08/17/24 08:59 Last Admin: 07/19/24 09:09 Dose: 75 mg Dextrose (Dextrose 50% 50 Ml Syringe) 25 - 50 ml IV UD PRN; Protocol PRN Reason: Hypoglycemia Protocol Stop: 08/16/24 18:12 Ezetimibe (Ezetimibe 10 Mg Tab) 10 mg PO QAM [facility] Stop: 08/17/24 08:59 Last Admin: 07/19/24 09:09 Dose: 10 mg Famotidine (Famotidine 20 Mg Tab) 20 mg PO DAILY PRN PRN Reason: Heartburn Stop: 08/16/24 18:12 Last Admin: 07/18/24 08:28 Dose: 20 mg Glucagon (Glucagon For Inj 1 Mg Vial) 1 mg SQ UD PRN; Protocol PRN Reason: Hypoglycemia Protocol Stop: 08/16/24 18:12 Glucose (Glucose 40% Gel 15 Gm Tube) 15 - 30 gm PO UD PRN; Protocol PRN Reason: Hypoglycemia Protocol Stop: 08/16/24 18:12 Glucose (Glucose 10 Tab/Tube) 4 - 8 tab PO UD PRN; Protocol PRN Reason: Hypoglycemia Protocol Stop: 08/16/24 18:12 Heparin Sodium (Porcine) (Heparin Sod 5,000 Unit/0.5 Ml Vial) 5,000 units SQ Q12 [facility] Stop: 08/17/24 20:59 Last Admin: 07/19/24 09:09 Dose: 5,000 units Insulin Aspart (Insulin Aspart Per Unit Charge) 0 units SC ACHS [facility] Stop: 08/16/24 20:59 Last Admin: 07/19/24 08:42 Dose: Not Given Lisinopril (Lisinopril 10 Mg Tab) 10 mg PO QAM [facility] Stop: 08/17/24 08:59 Last Admin: 07/19/24 09:09 Dose: 10 mg Melatonin (Melatonin 3 Mg Tab) 6 mg PO HS PRN PRN Reason: Sleep Stop: 08/16/24 20:59 Last Admin: 07/18/24 21:06 Dose: 6 mg Metoprolol Tartrate (Metoprolol Tartrate 1 Mg/Ml Vial) 5 mg IV Q6 PRN PRN Reason: Blood Pressure - High Stop: 08/17/24 11:59 Last Admin: 07/18/24 11:49 Dose: 5 mg Miscellaneous (Carbohydrates For Hypoglycemia ) 15 - 30 gm PO UD PRN PRN Reason: Hypoglycemia Protocol Stop: 08/16/24 18:12 Ondansetron HCl (Ondansetron Inj 2 Mg/Ml 2 Ml Vial) 4 mg IV Q6H PRN PRN Reason: Nausea Stop: 08/16/24 18:12 Last Admin: 07/18/24 09:50 Dose: 4 mg Sertraline HCl (Sertraline Hcl 100 Mg Tablet) 200 mg PO QAM [facility] Stop: 08/17/24 08:59 Last Admin: 07/19/24 09:09 Dose: 200 mg
[2024-07-19] MEDS: STROKE PATIENT DISCHARGE STA (13:23)
--- NOTE | 2024-07-20 07:54 | Discharge Summary ---
Date of Service July 20, 2024 Admission HPI Per Admitting Provider This is a 54-year-old female with significant past medical history of T2DM, HTN, HLD, depression and chronic insomnia who presents to ED secondary to difficulty speaking. Pts mom is at bedside who also helps elicit history. Patient reports difficulty speaking approx 24hrs ago. 48hrs ago she also reports vomiting. She also reports a headache for the last 24hrs. She texted her mom yesterday that she felt so sick and she was vomiting and she needed to lay down. Her mom was unable to get a hold of her last night and so this morning she went over to her house to see what was going on. When she got to the house she seemed confused and had difficulty speaking. Pt also complains of feeling sick and not well. Pts mom feels she is better than she was this morning. Pt reports feeling feverish two days ago, but did not confirm that she had a true fever. She denies cough, chest pain, sob, nausea, diarrhea, constipation, dysuria, increased urg/freq with urination or hematuria. She denies any known sick contacts. In ED pt was hypertensive initially. Her lab work revealed a leukocytosis and hyperglycemia. Her respiratory biofire was negative. She underwent head cta which was concerning for possible L MCA occlusion. She became a stroke alert and it was recommended to start ASA and plavix load. They did not feel she would require intervention given sx improving. Admission Exam Per Admitting Provider Physical Exam: Constitutional: WD/WN, vitals as above, NAD, sitting up in bed, pleasant, conversing easily Head: Normocephalic, Atraumatic Eyes: PERRL, conjunctivae normal, anicteric sclerae ENMT: external ear and nose normal, oropharynx normal Neck: trachea midline, no thyromegaly normal visual inspection Respiratory: normal respiratory effort, lungs clear to auscultation, no wheeze, rales, rhonchi. Normal insp/exp effort, no accessory muscle use Cardiovascular: RRR, no murmur, no edema Vessels: no JVD or carotid bruit Chest: normal inspection of chest Abdomen: normal bowel sounds, soft, nontender, no hepatosplenomegaly Musculoskeletal: no cyanosis or clubbing, extremities motor strength 5/5 Skin: no rashes, warm and dry normal turgor Neurologic: PERRL, EOMI, accommodation nl, no face palsy, +exp aphasia occasionally CN's II-XI intact bilaterally and moves all extremities Psychiatric: A+Ox3, euthymic affect Lymphatic: no cervical or axillary lymphadenopathy : deferred Principal Diagnosis Embolic stroke-right cerebellar and left parietal lobe, left MCA stenosis, hypertension Discharge Exam Lying in bed without any acute distress Constitutional well developed, well nourished, + ill appearing and average body habitus Eyes PERRL, conjunctivae normal, anicteric sclerae ENMT external ear and nose normal, oropharynx normal Neck trachea midline, no thyromegaly Respiratory no respiratory distress Auscultation: lungs clear to auscultation bilaterally Cardiovascular Rate/Rhythm: regular rate and regular rhythm; not tachycardic Heart Sounds: normal S1 and normal S2; no murmur Extremities: no edema Gastrointestinal (Abdomen) Inspection/Auscultation: normal bowel sounds; abdomen not distended Percussion/Palpation: + abdomen tender and abdomen soft Neurologic normal touch/pain/proprioception and moves all extremities; no focal motor deficits Lymphatic no cervical or axillary lymphadenopathy Discharge Data Allergies Allergy/AdvReac Type Severity Reaction Status Date / Time bupropion [From Wellbutrin] Allergy Hives Verified 07/17/24 15:55 Consultations 07/17/24 16:37 ED Decision to Admit Stat 07/17/24 18:13 Consult Neurology Routine Ordered Studies 07/17/24 13:43 CT angio head wo/w Stat 07/17/24 13:45 CT angio neck with con Stat 07/17/24 18:13 MR brain wo con Routine Hospital Course (1) Expressive aphasia: (2) Stroke-like symptoms: (3) Hypertension: (4) Diabetes: Plan This is a 54-year-old female with significant past medical history of T2DM, HTN, HLD, depression and chronic insomnia who presents to ED secondary to difficulty speaking. Sx occurred > 24hrs ago. Embolic stroke with left MCA occlusion- presented with Expressive Aphasia Stroke like sx Pt seen by Tele stroke and given improvement of sx it was recommended pt remain here for further stroke work up obtain MRI brain, echo Started on ASA 81mg daily, Plavix 75mg daily and lipitor 40mg daily Appreciate neurology input and recommendation Echo has been obtained and the result is pending Patient remains anxious and free from any neurological symptoms Will need PT and OT evaluation and also outpatient neuro and neurosurgery follow-up She has been stable without any neurological symptoms and she has been independently mobile in the room and in the hallway She will be discharged home this afternoon Will get her an appointment with neurology neurosurgery as an outpatient Hypertensive urgency Her blood pressure has been running high since admission with systolic as high as 203/114 Her lisinopril has been restarted and added with Lopressor 25 mg twice daily She has been also getting Lopressor 5 mg IV every 6 hourly with blood pressure parameters and also hydralazine 10 mg IV every 6 hourly alternating with blood pressure with blood pressure parameters Received NTP without any improvement of blood pressure Will observe in telemetry unit She is not having any acute symptoms from high blood pressure She noted to have bradycardia at 57 and blood pressure has been 117/77 this morning Her metoprolol has been discontinued and she will continue with lisinopril as b efore She will have follow-up appointment with the PCP Addendum 20:48 MRI:. Abnormal truncation of the proximal left M1 flow void is seen on reference CTA exam with numerous small collateral vessels. Appearance suggest chronic occlusion of the left MCA.2. Cortical gyriform diffusion restriction within the left parietal lobe spanning a distance of 2.7 cm, suggesting acute/subacute cerebral ischemia within the left MCA territory.3. Diffusion restriction within the right cerebellar hemisphere measuring 1.5 cm in diameter consistent with acute/subacute right cerebellar infarct. Acute R cerebellar hemisphere and L parietal Lobe Infarct reached out to Tele Stroke Dr. Box : continue ASA, Plavix, Lipitor and add Zetia Pt with 60% R vertebral stenosis - medical management is recommended As above T2DM - obtain a1c in a.m-- 5.9., Hold trulicity, ISS per protocol Depression: Chronic, stable, continue zoloft Ativan 0.5 mg 1 dose was given for anxiety DVT ppx: SCDS For now, await MRI will start subcu heparin FULL CODE PCP: Gabriel Dispo: admit to PCU for stroke work up Discussed with the mom and the patient in detail Total Time Total Time Spent Total Time Spent (In Minutes): 40 minutes Discharge Plan Discharge Items Patient Disposition: Home - Self-Care Reason For Visit: TIA Discharge Diagnosis: Embolic stroke-right cerebellar and left parietal lobe, left MCA stenosis, hypertension Condition on Discharge: Good Activity: Resume your previous activity Non-emergency contact: Primary Care Provider Call non-emergency contact if: you have any medication questions and your symptoms worsen Follow-up/Referrals: J Carlos Rios MD [Primary Care Provider] - 07/25/24 11:40 am (Date & Time 07/25/2024 11:40 AM Provider: J Carlos Rios MD [facility] ) Diet: Heart Healthy Addtl Attending Provider Instructions: Please take precaution to avoid falls Take your medications as advised- continue aspirin and Plavix until changed by your neurologist as an outpatient Check your blood pressure as advised to keep it systolic around 120-140 You will need to see neurology and neurosurgery as an outpatient and your PCP can arrange for those as an outpatient Please keep appointments with your healthcare providers Pending Studies at Discharge: No Stand-Alone Forms: [facility], Smoking Cessation, Medications to Prevent Stroke Medications and DC Order Prescriptions: New atorvastatin 40 mg Tablet 40 mg PO QAM Qty: 30 0RF clopidogrel 75 mg Tablet 75 mg PO QAM Qty: 30 0RF aspirin 81 mg Tablet,Delayed Release (Dr/Ec) 81 mg PO DAILY Qty: 30 0RF famotidine 20 mg Tablet 20 mg PO DAILY Qty: 30 0RF ezetimibe 10 mg Tablet 10 mg PO QAM Qty: 30 0RF Continued cyclobenzaprine 10 mg tablet 10 mg PO HS sertraline 100 mg tablet 200 mg PO QAM lisinopril 10 mg tablet 10 mg PO HS Trulicity 0.75 mg/0.5 mL pen injector 0.75 mg SUBCUT WK Discharge Orders: Discharge Order (Routine); Ordered 07/19/24 Ordered By: Myrna Aguirre/Other Patient Handouts: Symptoms of Stroke, What Is Ischemic Stroke?, Risk Factors for Stroke, Stroke Prevention Eating Healthy, Stroke Stop Another Health Tips Admission Data Admit Date/Time: 07/17/24 16:38 Attending Provider: Myrna Ruiz Admit Provider: Neil Ramirez Primary Care Provider: J Carlos Rios Other Providers: Neil Ramirez; Katy Malone Other Interventions: Discharge Summary Assessment (RN) Last Done: 07/19/24 12:26
== END 2024-07-19 15:17 | disposition home or self-care (01) | DRG 66 ==
LOC: ED 13:16 → 4W 16:38 → SUATTDRO 16:38 → 4W 17:38